=== PATIENT | female | born 1985 | race African-American/Black ===

== ENCOUNTER 2017-08-12 10:04 | Emergency (ER) | payer OTHER ==
[2017-08-12 10:17] VITALS: RESP 18; TEMP 97.8
--- NOTE | 2017-08-12 10:52 | ED ---
General Adult HPI - General Chief complaint: Vaginal Bleeding Stated complaint: Vaginal bleeding Time Seen by Provider: 08/12/17 10:37 Source: patient, RN notes reviewed Mode of arrival: ambulatory Limitations: no limitations - History of Present Illness Initial comments: Patient is a pleasant 32-year-old female presenting to the emergency department vaginal bleeding. Onset of symptoms was a month ago. Patient has been bleeding daily for the past month. Patient denies possible . Patient states bleeding is heavier than a regular period patient states occasionally seems like it is going to slow down however it does not. Patient occasionally has clots. No significant cramping. No history of similar symptoms previously. No abdominal pain. No fevers. - Related Data Previous Rx's Medication Instructions Recorded Ibuprofen [Motrin] 600 mg PO Q6HR PRN #12 tab 08/12/17 Norethindrone-Ethinyl Estrad 1 each PO DAILY #1 tablet 08/12/17 [Ortho-Novum 7-7-7-28 Tablet] Allergies Allergy/AdvReac Type Severity Reaction Status Date / Time No Known Allergies Allergy Unverified 08/12/17 12:38 Review of Systems ROS Statement: Those systems with pertinent positive or pertinent negative responses have been documented in the HPI. ROS Other: All systems not noted in ROS Statement are negative. Constitutional: Denies: fever Eyes: Denies: eye pain ENT: Denies: ear pain Respiratory: Denies: cough Cardiovascular: Denies: chest pain Endocrine: Denies: fatigue Gastrointestinal: Denies: abdominal pain Genitourinary: Reports: abnormal menses. Denies: dysuria Musculoskeletal: Denies: back pain Skin: Denies: rash Neurological: Denies: weakness Past Medical History Past Medical History: No Reported History History of Any Multi-Drug Resistant Organisms: None Reported Past Surgical History: No Surgical Hx Reported Past Psychological History: No Psychological Hx Reported Smoking Status: Never smoker Past Alcohol Use History: Occasional Past Drug Use History: None Reported General Exam Limitations: no limitations General appearance: alert, in no apparent distress Head exam: Present: atraumatic Eye exam: Present: normal appearance, PERRL ENT exam: Present: normal oropharynx Neck exam: Present: normal inspection Respiratory exam: Present: normal lung sounds bilaterally Cardiovascular Exam: Present: regular rate, normal rhythm GI/Abdominal exam: Present: soft. Absent: distended, tenderness External exam: Present: normal external exam (RN gris is present) Speculum exam: Present: vaginal bleeding (Minimal fresh blood and minimal dry blood) By manual exam: Present: normal by manual exam. Absent: cervical motion tenderness, adnexal tenderness, adnexal mass Extremities exam: Present: normal inspection Neurological exam: Present: alert Psychiatric exam: Present: normal affect, normal mood Skin exam: Present: normal color Course Vital Signs 08/12/17 10:13 Temperature 97.8 F Pulse Rate 84 Respiratory 18 Rate Blood Pressure 132/95 O2 Sat by Pulse 98 Oximetry Medical Decision Making - Medical Decision Making Patient reexamined and resting comfortably in bed. Patient updated on results and plan. Patient confirms she is a nonsmoker. - Lab Data Result diagrams: 08/12/17 11:09 08/12/17 11:09 Lab Results 08/12/17 08/12/17 08/12/17 Range/Units 11:09 11:09 11:09 WBC 6.6 (3.8-10.6) k/uL RBC 4.50 (3.80-5.40) m/uL Hgb 13.0 (11.4-16.0) gm/dL Hct 39.5 (34.0-46.0) % MCV 87.8 (80.0-100.0) fL MCH 28.9 (25.0-35.0) pg MCHC 32.9 (31.0-37.0) g/dL RDW 13.6 (11.5-15.5) % Plt Count 470 H (150-450) k/uL Neutrophils % 59 % Lymphocytes % 30 % Monocytes % 3 % Eosinophils % 5 % Basophils % 1 % Neutrophils # 3.9 (1.3-7.7) k/uL Lymphocytes # 2.0 (1.0-4.8) k/uL Monocytes # 0.2 (0-1.0) k/uL Eosinophils # 0.3 (0-0.7) k/uL Basophils # 0.1 (0-0.2) k/uL PT 10.6 (9.0-12.0) sec INR 1.0 (<1.2) APTT 24.1 (22.0-30.0) sec Sodium 139 (137-145) mmol/L Potassium 4.2 (3.5-5.1) mmol/L Chloride 106 (98-107) mmol/L Carbon Dioxide 23 (22-30) mmol/L Anion Gap 10 mmol/L BUN 7 (7-17) mg/dL Creatinine 0.72 (0.52-1.04) mg/dL Est GFR (MDRD) Af Amer >60 (>60 ml/min/1.73 sqM) Est GFR (MDRD) Non-Af >60 (>60 ml/min/1.73 sqM) Glucose 116 H (74-99) mg/dL Calcium 9.9 (8.4-10.2) mg/dL Total Bilirubin 0.4 (0.2-1.3) mg/dL AST 18 (14-36) U/L ALT 27 (9-52) U/L Alkaline Phosphatase 63 (38-126) U/L Total Protein 7.9 (6.3-8.2) g/dL Albumin 4.3 (3.5-5.0) g/dL Urine Color Urine Appearance (Clear) Urine pH (5.0-8.0) Ur Specific [place] (1.001-1.035) Urine Protein (Negative) Urine Glucose (UA) (Negative) Urine Ketones (Negative) Urine Blood (Negative) Urine Nitrite (Negative) Urine Bilirubin (Negative) Urine Urobilinogen (<2.0) mg/dL Ur Leukocyte Esterase (Negative) Urine HCG, Qual (Not Detectd) Trichomonas Ag (Rapid) (Negative) 08/12/17 08/12/17 08/12/17 Range/Units 11:15 11:15 11:31 WBC (3.8-10.6) k/uL RBC (3.80-5.40) m/uL Hgb (11.4-16.0) gm/dL Hct (34.0-46.0) % MCV (80.0-100.0) fL MCH (25.0-35.0) pg MCHC (31.0-37.0) g/dL RDW (11.5-15.5) % Plt Count (150-450) k/uL Neutrophils % % Lymphocytes % % Monocytes % % Eosinophils % % Basophils % % Neutrophils # (1.3-7.7) k/uL Lymphocytes # (1.0-4.8) k/uL Monocytes # (0-1.0) k/uL Eosinophils # (0-0.7) k/uL Basophils # (0-0.2) k/uL PT (9.0-12.0) sec INR (<1.2) APTT (22.0-30.0) sec Sodium (137-145) mmol/L Potassium (3.5-5.1) mmol/L Chloride (98-107) mmol/L Carbon Dioxide (22-30) mmol/L Anion Gap mmol/L BUN (7-17) mg/dL Creatinine (0.52-1.04) mg/dL Est GFR (MDRD) Af Amer (>60 ml/min/1.73 sqM) Est GFR (MDRD) Non-Af (>60 ml/min/1.73 sqM) Glucose (74-99) mg/dL Calcium (8.4-10.2) mg/dL Total Bilirubin (0.2-1.3) mg/dL AST (14-36) U/L ALT (9-52) U/L Alkaline Phosphatase (38-126) U/L Total Protein (6.3-8.2) g/dL Albumin (3.5-5.0) g/dL Urine Color Yellow Urine Appearance Clear (Clear) Urine pH 5.5 (5.0-8.0) Ur Specific [place] 1.015 (1.001-1.035) Urine Protein Negative (Negative) Urine Glucose (UA) Negative (Negative) Urine Ketones Negative (Negative) Urine Blood Negative (Negative) Urine Nitrite Negative (Negative) Urine Bilirubin Negative (Negative) Urine Urobilinogen <2.0 (<2.0) mg/dL Ur Leukocyte Esterase Negative (Negative) Urine HCG, Qual Not Detected (Not Detectd) Trichomonas Ag (Rapid) Negative (Negative) - Radiology Data Radiology results: image reviewed (Ultrasound does show thickened endometrium. Fibroid.) Disposition Clinical Impression: Dysfunctional uterine bleeding Disposition: HOME SELF-CARE Condition: Stable Instructions: Dysfunctional Uterine Bleeding (ED) Additional Instructions: Please follow-up with primary care physician and [facility]. No smoking with oral contraceptive pills. Return for fever, pain, worsening symptoms or other concerns Prescriptions: Ibuprofen [Motrin] 600 mg PO Q6HR PRN #12 tab PRN Reason: Pain Norethindrone-Ethinyl Estrad [Ortho-Novum 7-7-7-28 Tablet] 1 each PO DAILY #1 tablet Referrals: Renuka Perez MD [Primary Care Provider] - 1-2 days Demetrius Arreola MD [STAFF PHYSICIAN] - 1-2 days Time of Disposition: 12:56
[2017-08-12 11:30] LABS: Basophils # (A) 0.1 k/uL (0-0.2); Basophils % (A) 1 %; CH 29.1; CHCM 33.2; Eosinophils # (A) 0.3 k/uL (0-0.7); Eosinophils % (A) 5 %; HCT 39.5 % (34.0-46.0); HDW 2.34; Luc % (Auto) 2; Lymphocytes % (A) 30 %; MCH 28.9 pg (25.0-35.0); MCHC 32.9 g/dL (31.0-37.0); MCV 87.8 fL (80.0-100.0); Mean Platelet Volume 7.6; Monocytes # (A) 0.2 k/uL (0-1.0); Monocytes % (A) 3 %; Neutrophils # (A) 3.9 k/uL (1.3-7.7); Neutrophils % (A) 59 %; RDW 13.6 % (11.5-15.5); WBC 6.6 k/uL (3.8-10.6); WBC (Perox) 6.75
[2017-08-12 11:34] LABS: Appearance,Urine Clear (Clear); Bilirubin,Urine Negative (Negative); Glucose,Urine (UA) Negative (Negative); Ketones,Urine Negative (Negative); Leukocyte Esterase,Urine Negative (Negative); Nitrite,Urine Negative (Negative); PH, Urine 5.5 (5.0-8.0); Protein,Urine Negative (Negative); Specific Gravity,Urine 1.015 (1.001-1.035); UA Billing (MACRO vs. MICRO) CHEM; Urobilinogen,Urine <2.0 mg/dL (<2.0)
[2017-08-12 11:41] LABS: Partial Thromboplastin Time 24.1 sec (22.0-30.0); Prothrombin Time 10.6 sec (9.0-12.0)
[2017-08-12 11:44] LABS: ALT 27 U/L (9-52); AST 18 U/L (14-36); Alkaline Phosphatase 63 U/L (38-126); Anion Gap 10 mmol/L; Blood Urea Nitrogen 7 mg/dL (7-17); Calcium 9.9 mg/dL (8.4-10.2); Carbon Dioxide 23 mmol/L (22-30); Chloride 106 mmol/L (98-107); Glucose 116 mg/dL (74-99); Non-African American GFR(MDRD) >60 (>60 ml/min/1.73 sqM); Potassium 4.2 mmol/L (3.5-5.1); Sodium 139 mmol/L (137-145); Total Bilirubin 0.4 mg/dL (0.2-1.3); Total Protein 7.9 g/dL (6.3-8.2)
--- NOTE | 2017-08-12 12:42 | US ---
EXAMINATION TYPE: US transvaginal DATE OF EXAM: 08/12/2017 COMPARISON: NONE CLINICAL HISTORY: pain. Bleeding for 3 weeks since cycle started, non gravid, no abnormal pelvic hist ory TECHNIQUE: TV Date of LMP: 07/21/2017 EXAM MEASUREMENTS: Uterus: 7.0 x 5.3 x 3.8 cm Endometrial Stripe: 1.7 cm Right Ovary: 2.5 x 2.7 x 2.6 cm Left Ovary: 2.5 x 2.2 x 1.1 cm 1. Uterus: Anteverted 5.1cm left sided probable fibroid 2. Endometrium: borderline thickened 3. Right Ovary: wnl 4. Left Ovary: unable to doppler left ovary due to deep location just posterior to large fibroid, ap pears wnl Spectral, color and waveform doppler imaging shows good arterial and venous flow within the right o vary; there is no evidence for ovarian torsion. 5. Bilateral Adnexa: wnl 6. Posterior cul-de-sac: wnl IMPRESSION: 1. FIBROID UTERUS. 2. THICKENED ENDOMETRIAL STRIPE.
[2017-08-12 13:14] VITALS: BP 126/98; PULSE 83
[2017-08-14 11:11] LABS: Chlamydia/GC Source Vaginal
== END 2017-08-12 13:15 | disposition home or self-care (01) ==
LOC: EC 10:04
DX: N93.8 Other specified abnormal uterine and vaginal bleeding (principal)
CPT/HCPCS: 36415; 76830; 80053; 81003; 81025; 85025; 85610; 85730; 87070; 87205; 87491; 87591; 87808; 93976; 99284

== ENCOUNTER → 2023-02-10 | Outpatient (CLI) | payer OTHER ==
--- NOTE | 2023-02-11 14:39 | CT ---
EXAMINATION TYPE: CT abdomen pelvis w con DATE OF EXAM: 02/10/2023 COMPARISON: None INDICATION: LLQ abdominal pain, abnormal pelvic ultrasound DLP: 1020.4 mGycm, Automated exposure control for dose reduction was used. CONTRAST: 100 cc mL of Isovue 300. Study performed with Oral Contrast TECHNIQUE: Axial images were obtained from above the diaphragm to the pubic rami in the axial plane a t 5 mm thick sections. Reconstructed images are reviewed on the computer in the coronal plane. FINDINGS: Limited CT sections are obtained the lung bases. The lung bases are clear. CT ABDOMEN: Liver: Normal Spleen: Normal Pancreas: Normal Adrenal glands: The adrenal glands are normal. Gallbladder: Normal Kidneys: No masses are evident. No hydronephrosis is present. There is a 1.4 cm anterior right mid renal cyst. Delayed images were obtained through the kidneys, which remain unremarkable. Aorta: Normal Inferior vena cava: Normal. CT PELVIS: Loops of bowel within the abdomen and pelvis are normal. There are loops of bowel lacking oral co ntrast or with limited distention limiting their evaluation. Appendix: Normal as visualized. Urinary bladder: Normal. Genitourinary structures: Uterus is very large and bulky compatible with underlying fibroids. If aixa tional delineation is required, MRI could be performed. Adnexal regions appear normal. No free fluid is within the pelvis. Findings correlate with the 01/11/2023 ultrasound. Osseous structures: No suspicious lytic or sclerotic lesions. IMPRESSIONS: 1. Large bulky uterus, likely large underlying fibroids.
== END | disposition home or self-care (01) ==
LOC: RADCTMAIN 17:02
PROVIDERS: ATTEND Family Medicine
DX: N85.2 Hypertrophy of uterus (principal); R10.32 Left lower quadrant pain; R93.89 Abnormal findings on diagnostic imaging of other specified body structures
CPT/HCPCS: 74177; Q9967

== ENCOUNTER → 2023-02-14 | Outpatient (CLI) | payer OTHER ==
--- NOTE | 2023-02-14 13:54 | MM ---
Reason for Exam: Clinical finding. Last mammogram was performed 1 year(s) and 11 month(s) ago. Patient History: Menarche at age 11. Patient has no children. Premenopausal. 03/09/2021, US biopsy breast VAD RT on the Right side. Maternal grandmother had breast cancer at or over age 50. Risk Values: Vania 5 year model risk: 0.9%. NCI Lifetime model risk: 13.6%. Prior Study Comparison: 01/13/2021 Bilateral Screening Mammogram, [facility]. 02/10/2021 Right US breast RT - 2, [facility]. 03/09/2021 Right Diagnostic Mammogram, [facility]. 07/27/2021 Left US breast LT, [facility]. 01/11/2022 Left US breast LT, [facility]. Tissue Density: The breast tissue is extremely dense which could obscure a lesion on mammography. Findings: Analyzed By CAD. There are several circumscribed masses bilaterally redemonstrated along with 2 biopsy clips in the right breast again seen. There is a large mass with dystrophic calcifications in the anterior left breast redemonstrated. No definitive new suspicious group of microcalcifications bilaterally. Overall Assessment: Benign, BI-RAD 2 Management: Screening Mammogram of both breasts in 1 year. Some advise bilateral breast ultrasound surveillance in patient's with background dense tissue. Results were given to the patient verbally at the time of exam. Electronically signed and approved by: Per Morales M.D.
== END | disposition home or self-care (01) ==
LOC: RADMAMWWP 13:13
PROVIDERS: ATTEND Family Medicine
DX: R92.8 Other abnormal and inconclusive findings on diagnostic imaging of breast (principal); Z80.3 Family history of malignant neoplasm of breast
CPT/HCPCS: 77066; G0279; 77062

== ENCOUNTER → 2023-03-16 | Outpatient (CLI) | payer OTHER ==
--- NOTE | 2023-03-16 10:56 | USB ---
Reason for Exam: Additional evaluation requested from prior study. Patient History: Menarche at age 11. Patient has no children. Premenopausal. 03/09/2021, US biopsy breast VAD RT on the Right side. Maternal grandmother had breast cancer at or over age 50. Risk Values: Vania 5 year model risk: 0.9%. NCI Lifetime model risk: 13.6%. Technique: Method: Whole Breast Handheld. Prior Study Comparison: 03/09/2021 Right Diagnostic Mammogram, [facility]. 03/09/2021 Right Diagnostic Mammogram, [facility]. 02/14/2023 Bilateral MG 3D diag mammo w/cad MERNA, [facility]. Findings: The whole breast of both breasts, the axilla of both breasts and the retroareolar of both breasts were scanned. A complete US of all four quadrants of the breast , axilla, and retro-areolar region were reviewed. RIGHT: Compared to 02/15/2021, * *A lobulated hypoechoic area measuring 9 mm at the 4:00 position seems to have been present previously as well, similar in size. It is more defined now and can BE reassessed at 6 month follow-up. * Scattered cysts are redemonstrated. * 3.2 cm previously biopsied fibroadenoma at the 10:00 position. * Mildly thickened but nonenlarged right axillary lymph node measuring 8 mm short axis. Cortical thickness of 4 mm, probably reactive/post inflammatory. LEFT: Compared to 07/27/2021 and 01/11/2022, * *A mixed echogenicity lesion measuring 1.3 x 0.9 x 0.6 cm at the 12:00 position appears to have been present previously. The appearance is somewhat more hypoechoic. This area can be reassessed at 6 months. * Partially calcified circumscribed mass 1:00 position measuring 3.0 cm is unchanged. Likely fibroadenoma. * A mildly lobulated hypoechoic lesion measuring 1.6 x 1.1 cm at the 2:00 position, 8 cm from the nipple is new. It may correspond to a new density on mammogram. Tissue sampling recommended. * Scattered cysts are present. * No axillary lymphadenopathy. Overall Assessment: Suspicious, BI-RAD 4 Management: Ultrasound Core Biopsy of the left breast. For the new 2:00 finding measuring 1.6 cm, possible correlate to the mammographic density. Additional six-month follow-up ultrasound both breasts for the 4:00 position on the right and 12:00 position on the left. Results were given to the patient verbally at the time of exam. Electronically signed and approved by: Zunilda Pope M.D. Radiologist
== END | disposition home or self-care (01) ==
LOC: RADUSWWP 09:12
PROVIDERS: ATTEND Family Medicine
DX: R92.8 Other abnormal and inconclusive findings on diagnostic imaging of breast (principal); Z80.3 Family history of malignant neoplasm of breast

== ENCOUNTER → 2023-03-29 | Day surgery (SDC) | payer OTHER ==
--- NOTE | 2023-04-05 09:36 | MM ---
Reason for Exam: Clinical finding. Last screening mammogram was performed 2 month(s) ago. Patient History: Menarche at age 11. Patient has no children. Premenopausal. 03/09/2021, US biopsy breast VAD RT on the Right side. Maternal grandmother had breast cancer at or over age 50. Risk Values: Vania 5 year model risk: 0.9%. NCI Lifetime model risk: 13.6%. Prior Study Comparison: 03/09/2021 Right Diagnostic Mammogram, [facility]. 03/09/2021 Right Diagnostic Mammogram, [facility]. 02/14/2023 Bilateral MG 3D diag mammo w/cad MERNA, [facility]. 03/16/2023 Bilateral US breast BILAT, [facility]. Tissue Density: Left: The breast tissue is extremely dense which could obscure a lesion on mammography. Pathology Description: Location: 2 o'clock. Marker Left Behind. Needle Type: Mao Cores: 4 Gauge: 13 The procedure of ultrasound guided core biopsy was explained to the patient. Benefits, alternatives, and risks were discussed. An informed consent was then obtained. The patient was placed in supine positioning for imaging and for the procedure. The overlying skin was prepped and draped in usual sterile fashion. Lidocaine was used as anesthetic into the skin and subcutaneous tissue up to area of concern in the left breast at 2:00 8 cm from the nipple. Under ultrasound guidance, a 12-gauge vacuum assisted biopsy gun device was used to obtain 4 core samples. Following this, a biopsy clip was left in lesion. The patient tolerated the procedure well without any immediate complication. The patient was kept in the radiology department for short stay after the procedure and then discharged home in stable condition. Postprocedure mammogram: The patient was transferred to mammography for physician ordered post procedure mammogram for clip placement verification. The postprocedure mammogram the left breast demonstrates the clip to be in appropriate position. Impression: Successful, uncomplicated ultrasound guided core biopsy of area of concern in the left breast at 2:00 8 cm from the nipple, full pathology results to follow. Pathology Results: Result: Benign, Fibroadenoma. LEFT BREAST, TWO O'CLOCK, ULTRASOUND GUIDED NEEDLE CORE BIOPSY: Fibroadenoma. Overall Assessment: Benign Assessment: MG diagnostic mammo LT wo CAD. - Left: Benign, BI-RAD 2. Management: Diagnostic Mammogram of the left breast in 6 months. Electronically signed and approved by: Attila Currie D.O.
== END ==
LOC: RADUSWWP 12:58
PROVIDERS: ATTEND Family Medicine
DX: D24.2 Benign neoplasm of left breast (principal); Z80.0 Family history of malignant neoplasm of digestive organs
CPT/HCPCS: 88305; 77065; 19083; A4648

== ENCOUNTER → 2023-04-14 | Outpatient (CLI) | payer OTHER ==
[2023-04-14 09:34] VITALS: BP 118/83; PULSE 79; RESP 17; TEMP 97.8
--- NOTE | 2023-04-14 09:53 | P.GSHP ---
History of Present Illness H&P Date: 04/14/23 Chief Complaint: fibroadenoma left breast Lexie is a 38 year old female seen in consultation for DR. 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 She had a bilateral breast ultrasound on 03-16-23 which showed Right breast: Lobulated hypoechoic area measuring 9 mm at the 4 o'clock position seems to have been present previously and is similar in size. Reassessment in 6 months recommended 3.2 cm previously biopsied fibroadenoma at the 10 o'clock position Mildly thickened but not enlarged right axillary lymph node measuring 8 mm in the short axis cortical thickness of 4 mm felt to be reactive Left breast: Mixed echogenicity lesion measuring 1.3 x 0.9 cm at the 12 o'clock position appears to be present previously reassessment in 6 months recommended Partially calcified circumflex described mass 1 o'clock position measuring 3 cm unchanged likely fibroadenoma Mildly lobulated hypoechoic lesion measuring 1.6 x 1.1 cm at 2:00 may correspond to new density on mammogram tissue sampling recommended Tissue sampling of the left breast 2:00 lesion was performed which revealed a fibroadenoma The patient was recommended to have 6 month follow-up ultrasound of both breasts. She has had prior right breast biopsy in 2019, and told a fibroad enoma. She also had a mammogram performed in showed extremely dense breast tissue this was felt to be benign BIRADS 2. Several circumscribed masses were seen bilaterally with biopsy clips in the right breast again seen. There was a large mass with dystrophic calcifications in the anterior left breast no definitive new suspicious group of calcifications bilaterally. She does not feel any lumps or masses in her breast. She is not complaining of any nipple discharge or skin changes. She is not complaining of any trauma or infection in her breast. Caffiene: none nicotine: none chocolate: occasional BCP: to regulate period several years ago, for 1 month Family History: maternal grandmother: breast cancer maternal great aunt: breast cancer Hormonal History: menarche: 11 G0 periods irregular, patient has a fibroid hormones: none Surgical History: none Medical History: none Social History: nicotine: none alcohol: weekly drugs:none - Constitutional Constitutional: Reports fever, Reports sweats - EENT Eyes: bilateral blurred vision, denies pain Ears: bilateral: decreased hearing, deny: tinnitus Ears, nose, mouth and throat: Denies headache, Denies sore throat - Breasts Breasts: bilateral: as per HPI - Cardiovascular Cardiovascular: Denies chest pain, Denies shortness of breath - Respiratory Respiratory: Denies cough, Denies 7 - Gastrointestinal Gastrointestinal: Denies abdominal pain, Denies diarrhea, Denies nausea, Denies vomiting - Genitourinary (Female) Genitourinary: Denies dysuria, Denies hematuria - Menstruation Menstruation: Reports as per HPI, Reports cycle variable - Musculoskeletal Musculoskeletal: Denies myalgias - Integumentary Comment: skin lesion on her back, bleeding to follow up with medical DrJeet - Neurological Neurological: Denies numbness, Denies weakness - Psychiatric Psychiatric: Denies anxiety, Denies depression - Endocrine Endocrine: Denies fatigue, Denies weight change - Hematologic/Lymphatic Comment: none - Allergic/Immunologic Allergic/Immunologic: Reports seasonal allergies Past Medical History Past Medical History: No Reported History History of Any Multi-Drug Resistant Organisms: None Reported Past Surgical History: No Surgical Hx Reported Past Psychological History: No Psychological Hx Reported Smoking Status: Never smoker Past Alcohol Use History: Occasional Past Drug Use History: None Reported Medications and Allergies Home Medications Medication Instructions Recorded Confirmed Type No Known Home Medications 03/16/23 04/14/23 History Allergies Allergy/AdvReac Type Severity Reaction Status Date / Time No Known Allergies Allergy Unverified 04/14/23 09:31 Surgical - Exam - General no distress - Eyes normal ocular movement - ENT no hearing loss - Neck trachea midline - Respiratory normal respiratory effort, clear to auscultation - Cardiovascular Rhythm: regular Heart Sounds: normal: S1, S2 - Abdomen Abdomen: soft, non tender, no guarding, no rigid, no rebound - Integumentary normal turgor, posterior bra line in the back is a skin tag which is excoriated and bleeding - Neurologic no disoriented, no combative - Musculoskeletal normal gait, normal posture - Psychiatric oriented to time, oriented to person, oriented to place, speech is normal, memory intact Breast Exam: BRA: sports bra 2X Section: Bilateral grade 3 ptosis Palpation: Right breast: Multiple positional exam fibrocystic changes no dominant masses or nodules of concern appreciated Right axilla: No adenopathy concern Left breast: Multi-positional exam no dominant masses or nodules of concern Left axilla: No adenopathy of concern Despite the radiographic findings of fibroadenomas in both breasts the breasts are very dense and no distinct lesion could be palpated in either breast. Results Mammogram and ultrasound personally reviewed Assessment and Plan Assessment: Impression: Bilateral fibroadenomas, each breast is fibroadenoma that is greater than 3 cm but appeared to be stable Discuss surgical resection however at this time the patient has declined and would prefer close surveillance Bleeding skin tag left bra line Plan: Bilateral ultrasound in 6 months with examination at that time Resection of bleeding skin tag Follow-up one week for suture removal after back Risks and benefits of removal of skin tag of discussed with the patient She is recommended not to go swimming for 6 weeks and until this heals. She understands and wishes to have it removed. Cc: Dr. Yates:
== END ==
LOC: WWCWWP 09:03
PROVIDERS: ATTEND Surgery
DX: D24.2 Benign neoplasm of left breast (principal); Z80.3 Family history of malignant neoplasm of breast; Z86.018 Personal history of other benign neoplasm
CPT/HCPCS: 88304

== ENCOUNTER → 2023-04-21 | Outpatient (CLI) | payer OTHER ==
--- NOTE | 2023-04-21 08:28 | P.PN ---
Progress Note - Text Progress Note Date: 04/21/23 She comes post resection of fiber lipoma left back. The patient tolerated this without difficulty. Pathology revealed ulcerated/traumatized fibrolipoma. Examination: Incision clean and dry Sutures removed Patient is going to follow up for bilateral ultrasound of the breast due to fibroadenomas in September 2023 with appointment CC: Dr. Guallpa
== END ==
LOC: WWCWWP 08:06
PROVIDERS: ATTEND Surgery
DX: Z04.9 Encounter for examination and observation for unspecified reason (principal); Z00.00 Encounter for general adult medical examination without abnormal findings

== ENCOUNTER → 2023-08-10 | Outpatient (CLI) | payer OTHER ==
--- NOTE | 2023-08-10 10:25 | US ---
EXAMINATION TYPE: US pelvis complete transvag DATE OF EXAM: 08/10/2023 COMPARISON: NONE CLINICAL INDICATION: Female, 38 years old with history of D25.9 LEIOMYOMA OF UTERUS, UNSPECIFIED; fib roids TECHNIQUE: Transabdominal (TA EXAM MEASUREMENTS: Uterus: 17 x 9.4 x 14.4 cm Endometrial Stripe: obscured by fibroids 1. Uterus: Anteverted Heterogenous multiple fibroids largest 11.3 x 9.7 x 9.5 cm. 2. Endometrium: Obscured gas 3. Right Ovary: Obscured by overlying bowel gas 4. Left Ovary: Obscured by overlying bowel gas 5. Bilateral Adnexa: wnl 6. Posterior cul-de-sac: wnl IMPRESSION: Significantly enlarged uterus with multiple probable leiomyomas noted.
== END | disposition home or self-care (01) ==
LOC: RADUSWWP 09:49
PROVIDERS: ATTEND Obstetrics & Gynecology
DX: D25.9 Leiomyoma of uterus, unspecified (principal)
CPT/HCPCS: 76830; 76856

== ENCOUNTER → 2024-02-16 | Outpatient (CLI) | payer OTHER ==
--- NOTE | 2024-02-19 07:22 | USB ---
Reason for Exam: Additional evaluation requested from prior study. Patient History: Menarche at age 11. Patient has no children. Premenopausal. 03/29/2023, Benign US biopsy breast VAD LT on the left side. 03/09/2021, US biopsy breast VAD RT on the Right side. Maternal grandmother had breast cancer at or over age 50. Risk Values: Vania 5 year model risk: 1.7%. NCI Lifetime model risk: 17.7%. Technique: Method: Whole Breast Handheld. Doppler: Color. Prior Study Comparison: 03/09/2021 Right Diagnostic Mammogram, [facility]. 02/14/2023 Bilateral MG 3D diag mammo w/cad MERNA, [facility]. 03/29/2023 Left MG diagnostic mammo LT wo CAD., [facility]. Findings: The whole breast of both breasts, the axilla of both breasts and the retroareolar of both breasts were scanned. Right breast: There is a suspicious lobular hypoechoic area with possible shadowing right breast 5:00 position 5 cm from nipple. This may be changed from comparison, ultrasound-guided core biopsy is recommended. Multiple hypoechoic areas with shadowing are present throughout the right breast. Larger areas include the 1:00 position 7 cm from nipple. At the 8:00 position 9 cm from the nipple there is some shadowing with somewhat irregular hypoechoic signal appearing worse with harmonics. Short-term follow-up is recommended in 6 months. There is a large mass corresponding to the mammographic abnormality with calcification in prior biopsy clip at the 10:00 position 9 cm from the nipple. This appears to have smooth borders. Left breast: At the 1:00 position there is a hypoechoic area 12 cm from the nipple. Monitoring can be performed. At the 2:00 position 7 cm from the nipple there is a circumscribed somewhat lobulated hypoechoic density. Monitoring can be performed with follow-up in 6 months. Axillary regions are unremarkable. There are additional smaller findings bilaterally. Overall Assessment: Suspicious, BI-RAD 4 Management: Ultrasound-Guided Core Biopsy of the right breast. A clinical breast exam by your physician is recommended on an annual basis and results should be correlated with mammographic findings. This exam should not preclude additional follow-up of suspicious palpable abnormalities. Results were given to the patient verbally at the time of exam. Electronically signed and approved by: Edgardo Joe D.O. Radiologis
== END | disposition home or self-care (01) ==
LOC: RADUSWWP 07:39
PROVIDERS: ATTEND Surgery
DX: R92.8 Other abnormal and inconclusive findings on diagnostic imaging of breast (principal); Z80.3 Family history of malignant neoplasm of breast

== ENCOUNTER → 2024-02-16 | Outpatient (CLI) | payer OTHER ==
--- NOTE | 2024-02-16 08:20 | MM ---
Reason for Exam: Follow-up at short interval from prior study. Last screening mammogram was performed 12 month(s) ago. Patient History: Menarche at age 11. Patient has no children. Premenopausal. 03/29/2023, Benign US biopsy breast VAD LT on the left side. 03/09/2021, US biopsy breast VAD RT on the Right side. Maternal grandmother had breast cancer at or over age 50. Risk Values: Vania 5 year model risk: 1.7%. NCI Lifetime model risk: 17.7%. Prior Study Comparison: 01/13/2021 Bilateral Screening Mammogram, [facility]. 03/09/2021 Right Diagnostic Mammogram, [facility]. 03/09/2021 Right Diagnostic Mammogram, [facility]. 02/14/2023 Bilateral MG 3D diag mammo w/cad MERNA, [facility]. 03/29/2023 Left MG diagnostic mammo LT wo CAD., [facility]. Tissue Density: The breasts are extremely dense, which lowers the sensitivity of mammography. Findings: Analyzed By CAD. The pattern is symmetrical. There are several large oval densities with calcification likely related to fibroadenomas. There are punctate calcifications developing on the right within the previously biopsied mass. No suspicious groups of microcalcifications, spiculated or lobular masses, architectural distortion or other secondary signs of malignancy are mammographically apparent. Overall Assessment: Probably benign, BI-RAD 3 Management: Diagnostic Mammogram of the right breast in 6 months. A negative mammogram report should not preclude additional follow up of suspicious palpable abnormalities. Patient should continue monthly self breast exam. A clinical breast exam by your physician is recommended on an annual basis and results should be correlated with mammographic findings. Electronically signed and approved by: Edgardo Joe D.O. Radiologis
== END | disposition home or self-care (01) ==
LOC: RADMAMWWP 07:37
PROVIDERS: ATTEND Family Medicine
DX: R92.343 Mammographic extreme density, bilateral breasts (principal); R92.1 Mammographic calcification found on diagnostic imaging of breast; Z80.3 Family history of malignant neoplasm of breast
CPT/HCPCS: 77066; G0279; 77062

== ENCOUNTER → 2024-03-01 | Day surgery (SDC) | payer OTHER ==
--- NOTE | 2024-03-01 15:01 | USB ---
Risk Values: Vania 5 year model risk: 1.7%. NCI Lifetime model risk: 17.7%. Findings: Patient presented for possible biopsy right 5:00 region. The area of the irregular masslike shadowing does not persist on today's examination. There appears to be a small hypoechoic area measuring 7.6 mm which likely reflects a fibroadenoma. 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 The patient was given the option of follow-up versus proceed with biopsy. We both agreed that by follow-up is appropriate. Patient will be returning in 6 months for follow-up ultrasound. Management: Diagnostic Breast Ultrasound of the right breast in 6 months. Electronically signed and approved by: Juan Diego Wolf M.D. Radiologis
== END ==
LOC: RADUSWWP 10:20
PROVIDERS: ATTEND Surgery
DX: Z53.8 Procedure and treatment not carried out for other reasons (principal); R92.8 Other abnormal and inconclusive findings on diagnostic imaging of breast

== ENCOUNTER → 2024-03-07 | Outpatient (CLI) | payer OTHER ==
[2024-03-07 09:14] VITALS: BP 115/82; PULSE 79; RESP 16; TEMP 97.8
--- NOTE | 2024-03-07 10:17 | P.PN ---
Subjective Progress Note Date: 03/07/24 Principal diagnosis: abnormal right breast mammogram 04-14-23 fibroadenoma left breast Lexie is a 38 year old female seen in consultation for DR. 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 She had a bilateral breast ultrasound on 03-16-23 which showed Right breast: Lobulated hypoechoic area measuring 9 mm at the 4 o'clock position seems to have been present previously and is similar in size. Reassessment in 6 months recommended 3.2 cm previously biopsied fibroadenoma at the 10 o'clock position Mildly thickened but not enlarged right axillary lymph node measuring 8 mm in the short axis cortical thickness of 4 mm felt to be reactive Left breast: Mixed echogenicity lesion measuring 1.3 x 0.9 cm at the 12 o'clock position appears to be present previously reassessment in 6 months recommended Partially calcified circumflex described mass 1 o'clock position measuring 3 cm unchanged likely fibroadenoma Mildly lobulated hypoechoic lesion measuring 1.6 x 1.1 cm at 2:00 may correspond to new density on mammogram tissue sampling recommended Tissue sampling of the left breast 2:00 lesion was performed which revealed a fibroadenoma The patient was recommended to have 6 month follow-up ultrasound of both breasts. She has had prior right breast biopsy in 2018, and told a fibroadenoma. She also had a mammogram performed in showed extremely dense breast tissue this was felt to be benign BIRADS 2. Several circumscribed masses were seen bilaterally with biopsy clips in the right breast again seen. There was a large mass with dystrophic calcifications in the anterior left breast no definitive new suspicious group of calcifications bilaterally. She does not feel any lumps or masses in her breast. She is not complaining of any nipple discharge or skin changes. She is not complaining of any trauma or infection in her breast. 03-07-24 Lexie underwent a bilateral mammogram and ultrasound on 02-16-24. She was recommended to undergo a right breast ultrasound core biopsy which was attempted on 03-01-24. The lesion of concern at that time at 5 OClock did not persist and she was given the option of a 6 month follow up. Her radiographs were reviewed with Dr. Pope. He noted some increasing calcifications in the right bresat in the region of a fibroadenoma. He recommended maginification views of the right breast. She does not feel any new lumps masses or nodules of concern in either breast. She has noted a rash around her left areola which she was given an antibiotic ointment for but it did not clear up. The rash has been present for 2 months. It has increased in size and it itches. Caffiene: none nicotine: none chocolate: occasional BCP: to regulate period several years ago, for 1 month Family History: maternal grandmother: breast cancer maternal great aunt: breast cancer Hormonal History: menarche: 11 G0 periods irregular, patient has a fibroid hormones: none Surgical History: none Medical History: none Social History: nicotine: none alcohol: weekly drugs:none - Constitutional Constitutional: Reports fever, Reports sweats - EENT Eyes: bilateral blurred vision, denies pain Ears: bilateral: decreased hearing, deny: tinnitus Ears, nose, mouth and throat: Denies headache, Denies sore throat - Breasts Breasts: bilateral: as per HPI - Cardiovascular Cardiovascular: Denies chest pain, Denies shortness of breath - Respiratory Respiratory: Denies cough - Gastrointestinal Gastrointestinal: Denies abdominal pain, Denies diarrhea, Denies nausea, Denies vomiting - Genitourinary (Female) Genitourinary: Denies dysuria, Denies hematuria - Menstruation Menstruation: Reports as per HPI, Reports cycle variable - Musculoskeletal Musculoskeletal: Denies myalgias - Integumentary Comment: skin lesion on her back, bleeding to follow up with medical DrJeet - Neurological Neurological: Denies numbness, Denies weakness - Psychiatric Psychiatric: Denies anxiety, Denies depression - Endocrine Endocrine: Denies fatigue, Denies weight change - Hematologic/Lymphatic Comment: none - Allergic/Immunologic Allergic/Immunologic: Reports seasonal allergies Past Medical History Past Medical History: No Reported History History of Any Multi-Drug Resistant Organisms: None Reported Past Surgical History: No Surgical Hx Reported Past Psychological History: No Psychological Hx Reported Smoking Status: Never smoker Past Alcohol Use History: Occasional Past Drug Use History: None Reported Medications and Allergies Home Medications Medication Instructions Recorded Confirmed Type No Known Home Medications 03/16/23 04/14/23 History Allergies Allergy/AdvReac Type Severity Reaction Status Date / Time No Known Allergies Allergy Unverified 04/14/23 09:31 Objective - Vital Signs Vital signs: Vital Signs Temp 97.8 F 04/18/24 08:56 Pulse 79 03/07/24 08:56 Resp 16 03/07/24 08:56 BP 115/82 03/07/24 08:56 Pulse Ox 99 03/07/24 08:56 FiO2 Intake & Output 03/06/24 03/07/24 03/07/24 18:59 06:59 18:59 Weight 95.254 kg - Constitutional General appearance: Present: cooperative - EENT Eyes: Present: EOMI ENT: Present: hearing grossly normal - Neck Details: thyroid feels enlarged Neck: Present: normal ROM - Respiratory Respiratory: bilateral: CTA - Cardiovascular Rhythm: regular Heart sounds: normal: S1, S2 - Gastrointestinal General gastrointestinal: Present: soft - Integumentary Integumentary: Present: normal turgor - Musculoskeletal Musculoskeletal: Present: gait normal - Psychiatric Psychiatric: Present: A&O x's 3, appropriate affect, intact judgment & insight - Additional findings Additional findings: Breast Exam: BRA: sports bra 2X Inpection: Bilateral grade 3 ptosis, and the left side in the inner aspect has some thickened scaling skin changes Palpation: Right breast: Multiple positional exam fibrocystic changes no dominant masses or nodules of concern appreciated Right axilla: No adenopathy concern Left breast: Multi-positional exam no dominant masses or nodules of concern Left axilla: No adenopathy of concern Despite the radiographic findings of fibroadenomas in both breasts the breasts are very dense and no distinct lesion could be palpated in either breast. Assessment and Plan Assessment: Impression/Plan: Mammogram and ultrasound personally reviewed with Dr. Roberson Thyroid feels prominent may be enlarged Patient complains of fatigue New microcalcifications right breast in region of biopsy-proven fibroadenoma/mag views requested by radiology Ultrasound abnormality right breast repeat ultrasound in 6 months biopsy was canceled by radiology Skin changes left areola skin punch biopsy recommended CC: Dr. Milan Lopes
== END ==
LOC: WWCWWP 08:44
PROVIDERS: ATTEND Surgery
DX: R53.83 Other fatigue (principal)

== ENCOUNTER → 2024-03-07 | Outpatient (CLI) | payer OTHER ==
--- NOTE | 2024-03-07 11:14 | MM ---
Reason for Exam: Follow-up at short interval from prior study. Last screening mammogram was performed less than 1 month ago. Patient History: Menarche at age 11. Patient has no children. Premenopausal. 03/29/2023, Benign US biopsy breast VAD LT on the left side. 03/09/2021, US biopsy breast VAD RT on the Right side. 03/01/2024, US discontinued breast core RT on the right side. Maternal grandmother had breast cancer at or over age 50. Risk Values: Vania 5 year model risk: 1.7%. NCI Lifetime model risk: 17.7%. Prior Study Comparison: 02/14/2023 Bilateral MG 3D diag mammo w/cad MERNA, [facility]. 03/29/2023 Left MG diagnostic mammo LT wo CAD., [facility]. 02/16/2024 Bilateral MG 3D diag mammo w/cad MERNA, [facility]. Tissue Density: Right: The breasts are heterogeneously dense, which may obscure small masses. Findings: Analyzed By CAD. Chronic underlying nodularity. Chronic mass upper outer quadrant of the right breast with some associated coarse calcification and a microclip from prior biopsy. However, new/increased heterogeneous calcifications within the posterior aspect of the mass for which stereotactic biopsy is recommended. Overall Assessment: Suspicious, BI-RAD 4 Management: Stereotactic Core Biopsy of the right breast. . Results were given to the patient verbally at the time of exam. Electronically signed and approved by: Zunilda Pope M.D. Radiologist
== END | disposition home or self-care (01) ==
LOC: RADMAMWWP 10:18
PROVIDERS: ATTEND Surgery
DX: N63.11 Unspecified lump in the right breast, upper outer quadrant (principal); R92.331 Mammographic heterogeneous density, right breast; R92.0 Mammographic microcalcification found on diagnostic imaging of breast; Z80.3 Family history of malignant neoplasm of breast
CPT/HCPCS: 77065; G0279; 77061

== ENCOUNTER → 2024-03-29 | Outpatient (CLI) | payer OTHER | LOC: WWCWWP 07:23 | PROVIDERS: ATTEND Surgery | DX: Z53.9 Procedure and treatment not carried out, unspecified reason (principal) ==

== ENCOUNTER → 2024-03-29 | Day surgery (SDC) | payer OTHER ==
[~2024-03-29] MED LIST: ALPRAZolam 0.25 MG TAB PO PRN; ALPRAZolam 0.5 MG TAB PO PRN
[2024-03-29 08:21] VITALS: RESP 16
[2024-03-29 09:11] VITALS: BP 120/88; PULSE 80; TEMP 98.1
--- NOTE | 2024-03-29 13:33 | MM ---
Date of Procedure: 03/29/24 Preoperative Diagnosis: Microcalcifications of concern right breast Postoperative Diagnosis: Same Procedure(s) Performed: Right breast stereotactic core biopsy Anesthesia: local Surgeon: Margy Berry Pathology: other (Right breast tissue) Condition: stable Disposition: same day Indications for Procedure: Right breast microcalcifications of concern Operative Findings: Radiograph of specimen reveals microcalcifications of concern Description of Procedure: The patient is a 39-year-old female who was noted to have microcalcifications of concern in the right breast. The radiographs were reviewed with Dr. Pope and stereotactic core biopsy was recommended. She had had a prior core biopsy of the area which revealed a fibroadenoma. These were new increasing calcifications in the region of the fibroadenoma. Risk and benefits of the procedure were discussed with the patient. The patient wished to proceed. The patient was taken to the stereotactic core biopsy room. A CC from above approach was utilized. 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 The area was targeted. The breast was prepped using chlorhexidine. 1% lidocaine 20 cc was used to anesthetize the area of concern. A 9 gauge vacuum-assisted core rotating biopsy needle was driven to the correct coordinates. A prefire film was performed. The needle was fired. A post fire film was performed and the needle was noted to be in the correct location. 7 core biopsy specimens were obtained. Radiograph of the specimen revealed the area of concern had been adequately sampled. A secure chip Top-Hat clip was deployed. The patient tolerated the procedure in stable condition. The patient will follow-up with Dr. Ferreira next week. The specimen was sent to pathology. Should be noted that prior the patient was noted to have a rash on the left nipple areolar complex this has resolved and a punch biopsy has been canceled for today of the left nipple areolar complex. This will be reevaluated next week. [facility]ITAL[facility]
== END ==
LOC: RADMAMWWP 07:25
PROVIDERS: ATTEND Surgery
DX: D05.11 Intraductal carcinoma in situ of right breast (principal)
CPT/HCPCS: 88305; 88342; 88341; 19081; A4648; J2001

== ENCOUNTER → 2024-04-05 | Outpatient (CLI) | payer OTHER ==
[2024-04-05 09:33] VITALS: BP 120/86; PULSE 86; RESP 16; TEMP 98.1
--- NOTE | 2024-04-05 09:50 | P.PN ---
Subjective Progress Note Date: 04/05/24 Right breast diagnostic mammogram done on 03-07-[address] Roberson. Recommended stero biopsy new calcifications in region of fibroadenoma UOQ right breast. Procedure discussed with the patient. She understands and wishes to proceed Additionally on the day that we do the right breast stereo biopsy we will do a punch biopsy of the skin of the left areolar region. Original Note: Subjective Progress Note Date: 03/07/24 Principal diagnosis: abnormal right breast mammogram 04-14-23 fibroadenoma left breast Lexie is a 38 year old female seen in consultation for DR. 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 She had a bilateral breast ultrasound on 03-16-23 which showed Right breast: Lobulated hypoechoic area measuring 9 mm at the 4 o'clock position seems to have been present previously and is similar in size. Reassessment in 6 months recommended 3.2 cm previously biopsied fibroadenoma at the 10 o'clock position Mildly thickened but not enlarged right axillary lymph node measuring 8 mm in the short axis cortical thickness of 4 mm felt to be reactive Left breast: Mixed echogenicity lesion measuring 1.3 x 0.9 cm at the 12 o'clock position appears to be present previously reassessment in 6 months recommended Partially calcified circumflex described mass 1 o'clock position measuring 3 cm unchanged likely fibroadenoma Mildly lobulated hypoechoic lesion measuring 1.6 x 1.1 cm at 2:00 may correspond to new density on mammogram tissue sampling recommended Tissue sampling of the left breast 2:00 lesion was performed which revealed a fibroadenoma The patient was recommended to have 6 month follow-up ultrasound of both breasts. She has had prior right breast biopsy in 2018, and told a fibroadenoma. She also had a mammogram performed in showed extremely dense breast tissue this was felt to be benign BIRADS 2. Several circumscribed masses were seen bilaterally with biopsy clips in the right breast again seen. There was a large mass with dystrophic calcifications in the anterior left breast no definitive new suspicious group of calcifications bilaterally. She does not feel any lumps or masses in her breast. She is not complaining of any nipple discharge or skin changes. She is not complaining of any trauma or infection in her breast. 03-07-24 Lexie underwent a bilateral mammogram and ultrasound on 02-16-24. She was recommended to undergo a right breast ultrasound core biopsy which was attempted on 03-01-24. The lesion of concern at that time at 5 OClock did not persist and she was given the option of a 6 month follow up. Her radiographs were reviewed with Dr. Pope. He noted some increasing calcifications in the right bresat in the region of a fibroadenoma. He recommended maginification views of the right breast. She does not feel any new lumps masses or nodules of concern in either breast. She has noted a rash around her left areola which she was given an antibiotic ointment for but it did not clear up. The rash has been present for 2 months. It has increased in size and it itches. 04-05-24 When seen on her last examination was noted to have resolution of the left areolar rash. She underwent a stereotactic core biopsy of the right breast on 03-29-2024. 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 This appears to be present within a fibroadenoma. She tolerated the procedure without difficulty, she did have a reaction to the tape. Caffiene: none nicotine: none chocolate: occasional BCP: to regulate period several years ago, for 1 month Family History: maternal grandmother: breast cancer maternal great aunt: breast cancer Hormonal History: menarche: 11 G0 periods irregular, patient has a fibroid hormones: none Surgical History: none Medical History: none Social History: nicotine: none alcohol: weekly drugs:none - Constitutional Constitutional: Reports fever, Reports sweats - EENT Eyes: bilateral blurred vision, denies pain Ears: bilateral: decreased hearing, deny: tinnitus Ears, nose, mouth and throat: Denies headache, Denies sore throat - Breasts Breasts: bilateral: as per HPI - Cardiovascular Cardiovascular: Denies chest pain, Denies shortness of breath - Respiratory Respiratory: Denies cough - Gastrointestinal Gastrointestinal: Denies abdominal pain, Denies diarrhea, Denies nausea, Denies vomiting - Genitourinary (Female) Genitourinary: Denies dysuria, Denies hematuria - Menstruation Menstruation: Reports as per HPI, Reports cycle variable - Musculoskeletal Musculoskeletal: Denies myalgias - Integumentary Comment: skin lesion on her back, bleeding to follow up with medical Dr. - Neurological Neurological: Denies numbness, Denies weakness - Psychiatric Psychiatric: Denies anxiety, Denies depression - Endocrine Endocrine: Denies fatigue, Denies weight change - Hematologic/Lymphatic Comment: none - Allergic/Immunologic Allergic/Immunologic: Reports seasonal allergies Past Medical History Past Medical History: No Reported History History of Any Multi-Drug Resistant Organisms: None Reported Past Surgical History: No Surgical Hx Reported Past Psychological History: No Psychological Hx Reported Smoking Status: Never smoker Past Alcohol Use History: Occasional Past Drug Use History: None Reported Medications and Allergies Home Medications Medication Instructions Recorded Confirmed Type No Known Home Medications 03/16/23 04/14/23 History Allergies Allergy/AdvReac Type Severity Reaction Status Date / Time No Known Allergies Allergy Unverified 04/14/23 09:31 Objective - Vital Signs Vital signs: Vital Signs Temp 98.1 F 04/05/24 09:18 Pulse 86 04/05/24 09:18 Resp 16 04/05/24 09:18 BP 120/86 04/05/24 09:18 Pulse Ox 96 04/05/24 09:18 FiO2 Intake & Output 04/04/24 04/05/24 04/05/24 18:59 06:59 18:59 Weight 95.254 kg - Constitutional General appearance: Present: cooperative - EENT Eyes: Present: EOMI ENT: Present: hearing grossly normal - Neck Neck: Present: normal ROM - Respiratory Respiratory: bilateral: CTA - Cardiovascular Heart sounds: normal: S1, S2 - Integumentary Integumentary: Present: normal turgor - Musculoskeletal Musculoskeletal: Present: gait normal - Psychiatric Psychiatric: Present: A&O x's 3, appropriate affect, intact judgment & insight - Additional findings Additional findings: Breast Exam: BRA: sports bra 2X Inspection: Bilateral grade 3 ptosis, and the left side in the inner aspect had some thickened scaling skin changes which resolved Palpation: Right breast: Multiple positional exam fibrocystic changes no dominant masses or nodules of concern appreciated Right axilla: No adenopathy concern Left breast: Multi-positional exam no dominant masses or nodules of concern Left axilla: No adenopathy of concern Despite the radiographic findings of fibroadenomas in both breasts the breasts are very dense and no distinct lesion could be palpated in either breast. Assessment and Plan Assessment: Impression/Plan: Mammogram and ultrasound personally reviewed with Dr. Roberson Thyroid feels prominent may be enlarged Patient complains of fatigue New microcalcifications right breast in region of biopsy-proven fibroadenoma/mag views requested by radiology/which led to a stereotactic core biopsy pathology from this revealed high-grade DCIS with comedonecrosis involving a fibroadenoma this is ER/SC positive Ultrasound abnormality right breast repeat ultrasound in 6 months biopsy was canceled by radiology Skin changes left areola skin punch biopsy recommended which was canceled when patient was re-evaluated secondary to resolution Plan: 1. Needle localization lumpectomy right breast, possible right breast oncoplastic tissue transfer 2. Medical clearance Dr. Milan Lopes CC: Dr. Milan Lopes
== END ==
LOC: WWCWWP 09:09
PROVIDERS: ATTEND Surgery
DX: R92.8 Other abnormal and inconclusive findings on diagnostic imaging of breast (principal); R92.0 Mammographic microcalcification found on diagnostic imaging of breast; D24.1 Benign neoplasm of right breast; D24.2 Benign neoplasm of left breast; R21 Rash and other nonspecific skin eruption; D05.11 Intraductal carcinoma in situ of right breast; R53.83 Other fatigue; Z80.3 Family history of malignant neoplasm of breast

== ENCOUNTER → 2024-05-02 | Outpatient (CLI) | payer OTHER ==
[2024-05-02 10:45] VITALS: BP 133/80; PULSE 79; RESP 16; TEMP 98.2
--- NOTE | 2024-05-02 11:22 | P.PN ---
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 Lexie underwent a bilateral mammogram and ultrasound on 02-16-24. She was recommended to undergo a right breast ultrasound core biopsy which was attempted on 03-01-24. The lesion of concern at that time at 5 OClock did not persist and she was given the option of a 6 month follow up. Her radiographs were reviewed with Dr. Pope. He noted some increasing calcifications in the right breast in the region of a biopsy proven fibroadenoma. He recommended maginification views of the right breast. This led to a stero biopsy of the area on 03-29-24. She did not feel any new lumps masses or nodules of concern in either breast. She had noted a rash around her left areola which she was given an antibiotic ointment for but it did not clear up. The rash has been present for 2 months. It has increased in size and it itches. her case was presented at tumor board and she was recommended to have needle localization lumpectomy, and SNB genetic testing was (-). Caffiene: none nicotine: none chocolate: occasional BCP: to regulate period several years ago, for 1 month Family History: maternal grandmother: breast cancer maternal great aunt: breast cancer Hormonal History: menarche: 11 G0 periods irregular, patient has a fibroid hormones: none Surgical History: none Medical History: none Social History: nicotine: none alcohol: weekly drugs:none - Constitutional Constitutional: Reports fever, Reports sweats - EENT Eyes: bilateral blurred vision, denies pain Ears: bilateral: decreased hearing, deny: tinnitus Ears, nose, mouth and throat: Denies headache, Denies sore throat - Breasts Breasts: bilateral: as per HPI - Cardiovascular Cardiovascular: Denies chest pain, Denies shortness of breath - Respiratory Respiratory: Denies cough - Gastrointestinal Gastrointestinal: Denies abdominal pain, Denies diarrhea, Denies nausea, Denies vomiting - Genitourinary (Female) Genitourinary: Denies dysuria, Denies hematuria - Menstruation Menstruation: Reports as per HPI, Reports cycle variable - Musculoskeletal Musculoskeletal: Denies myalgias - Integumentary Comment: skin lesion on her back, bleeding to follow up with medical DrJeet - Neurological Neurological: Denies numbness, Denies weakness - Psychiatric Psychiatric: Denies anxiety, Denies depression - Endocrine Endocrine: Denies fatigue, Denies weight change - Hematologic/Lymphatic Comment: none - Allergic/Immunologic Allergic/Immunologic: Reports seasonal allergies Past Medical History Past Medical History: No Reported History History of Any Multi-Drug Resistant Organisms: None Reported Past Surgical History: No Surgical Hx Reported Past Psychological History: No Psychological Hx Reported Smoking Status: Never smoker Past Alcohol Use History: Occasional Past Drug Use History: None Reported Medications and Allergies Home Medications Medication Instructions Recorded Confirmed Type No Known Home Medications 03/16/23 04/14/23 History Allergies Allergy/AdvReac Type Severity Reaction Status Date / Time No Known Allergies Allergy Unverified 04/14/23 09:31 Objective - Vital Signs Vital signs: Vital Signs Temp 98.2 F 05/02/24 10:42 Pulse 79 05/02/24 10:42 Resp 16 05/02/24 10:42 BP 133/80 05/02/24 10:42 Pulse Ox 99 05/02/24 10:42 FiO2 Intake & Output 05/01/24 05/02/24 05/02/24 18:59 06:59 18:59 Weight 95.254 kg - Constitutional General appearance: Present: cooperative - EENT Eyes: Present: EOMI ENT: Present: hearing grossly normal - Neck Neck: Present: normal ROM - Respiratory Respiratory: bilateral: CTA - Cardiovascular Heart sounds: normal: S1, S2 - Integumentary Integumentary: Present: normal turgor - Musculoskeletal Musculoskeletal: Present: gait normal - Psychiatric Psychiatric: Present: A&O x's 3, appropriate affect, intact judgment & insight - Additional findings Additional findings: Breast Exam: BRA: sports bra 2X Inpection: Bilateral grade 3 ptosis, on the left side the periareolar skin changes have resolved; right breast clean and dry small evidence of a keloid is present at the site Palpation: Right breast: Multiple positional exam fibrocystic changes no dominant masses or nodules of concern appreciated Right axilla: No adenopathy concern Left breast: Multi-positional exam no dominant masses or nodules of concern Left axilla: No adenopathy of concern Despite the radiographic findings of fibroadenomas in both breasts the breasts are very dense and no distinct lesion could be palpated in either breast. Assessment and Plan Assessment: Impression: DCIS high-grade and area fibroadenoma right breast Plan: Medical clearance Dr. Milan Lopes Localization excisional lumpectomy area of ductal carcinoma right breast, possible oncoplastic tissue transfer, right sentinel node injection, right sentinel node biopsy, Risk and benefits of procedure were discussed with the patient. Risk include but are not limited to bleeding, infection, reaction to the anesthetic. She may have some decrease sensation to the inner arm or lymphedema. She understands and wishes to proceed. Additionally if margins were to be positive further tissue acquisition may be necessary. Additionally she may be at increased risk for keloid formation. CC: Dr. Jyothi Lopes
--- NOTE | 2024-05-02 11:30 | P.BCPN ---
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 Lexie underwent a bilateral mammogram and ultrasound on 02-16-24. She was recommended to undergo a right breast ultrasound core biopsy which was attempted on 03-01-24. The lesion of concern at that time at 5 OClock did not persist and she was given the option of a 6 month follow up. Her radiographs were reviewed with Dr. Pope. He noted some increasing calcifications in the right breast in the region of a biopsy proven fibroadenoma. He recommended maginification views of the right breast. This led to a stero biopsy of the area on 03-29-24. She did not feel any new lumps masses or nodules of concern in either breast. She had noted a rash around her left areola which she was given an antibiotic ointment for but it did not clear up. The rash has been present for 2 months. It has increased in size and it itches. her case was presented at tumor board and she was recommended to have needle localization lumpectomy, and SNB genetic testing was (-). Caffiene: none nicotine: none chocolate: occasional BCP: to regulate period several years ago, for 1 month Family History: maternal grandmother: breast cancer maternal great aunt: breast cancer Hormonal History: menarche: 11 G0 periods irregular, patient has a fibroid hormones: none Surgical History: none Medical History: none Social History: nicotine: none alcohol: weekly drugs:none - Constitutional Constitutional: Reports fever, Reports sweats - EENT Eyes: bilateral blurred vision, denies pain Ears: bilateral: decreased hearing, deny: tinnitus Ears, nose, mouth and throat: Denies headache, Denies sore throat - Breasts Breasts: bilateral: as per HPI - Cardiovascular Cardiovascular: Denies chest pain, Denies shortness of breath - Respiratory Respiratory: Denies cough - Gastrointestinal Gastrointestinal: Denies abdominal pain, Denies diarrhea, Denies nausea, Denies vomiting - Genitourinary (Female) Genitourinary: Denies dysuria, Denies hematuria - Menstruation Menstruation: Reports as per HPI, Reports cycle variable - Musculoskeletal Musculoskeletal: Denies myalgias - Integumentary Comment: skin lesion on her back, bleeding to follow up with medical DrJeet - Neurological Neurological: Denies numbness, Denies weakness - Psychiatric Psychiatric: Denies anxiety, Denies depression - Endocrine Endocrine: Denies fatigue, Denies weight change - Hematologic/Lymphatic Comment: none - Allergic/Immunologic Allergic/Immunologic: Reports seasonal allergies Past Medical History Past Medical History: No Reported History History of Any Multi-Drug Resistant Organisms: None Reported Past Surgical History: No Surgical Hx Reported Past Psychological History: No Psychological Hx Reported Smoking Status: Never smoker Past Alcohol Use History: Occasional Past Drug Use History: None Reported Medications and Allergies Home Medications Medication Instructions Recorded Confirmed Type No Known Home Medications 03/16/23 04/14/23 History Allergies Allergy/AdvReac Type Severity Reaction Status Date / Time No Known Allergies Allergy Unverified 04/14/23 09:31 Objective - Vital Signs Vital Signs: Vital Signs Temp 98.2 F 05/02/24 10:42 Pulse 79 05/02/24 10:42 Resp 16 05/02/24 10:42 BP 133/80 05/02/24 10:42 Pulse Ox 99 05/02/24 10:42 FiO2 Intake & Output 05/01/24 05/02/24 05/02/24 18:59 06:59 18:59 Weight 95.254 kg - Constitutional General appearance: Present: cooperative - EENT Eyes: Present: EOMI ENT: Present: hearing grossly normal - Neck Neck: Present: normal ROM - Breast Ptosis: Grade 3: Right Breast Ptosis, Left Breast Ptosis Right Breast Palpation (Multi-positional): No dominant masses Left Breast Palpation (Multi-positional): No dominant masses Right Axilla Palpation: No adenopathy of concern Left Axilla Palpation: No adenopathy of concern - Respiratory Respiratory: bilateral: CTA - Cardiovascular Heart sounds: normal: S1, S2 - Integumentary Integumentary: Present: normal turgor - Musculoskeletal Musculoskeletal: Present: gait normal - Psychiatric Psychiatric: Present: A&O x's 3, appropriate affect, intact judgment & insight Assessment and Plan Plan: Impression: 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 Patient understands and wishes to proceed. Prep Education Provided - Preoperative Education Given Pre-Op Kit Given Date: 05/02/24 - Functional Assessment Performed?: Yes (arm adduction test passed) Referal Provided?: No - Smoking Cessation Education Provided?: Yes
== END ==
LOC: WWCWWP 10:06
PROVIDERS: ATTEND Surgery
DX: R92.8 Other abnormal and inconclusive findings on diagnostic imaging of breast (principal); R92.1 Mammographic calcification found on diagnostic imaging of breast; D05.11 Intraductal carcinoma in situ of right breast; D24.1 Benign neoplasm of right breast; Z80.3 Family history of malignant neoplasm of breast

== ENCOUNTER 2024-05-07 10:00 | Day surgery (SDC) | payer OTHER ==
[2024-05-03 12:40] VITALS: BMI 33.9
[~2024-05-07 10:00] MED LIST changes: -ALPRAZolam 0.25 MG TAB PO PRN; -ALPRAZolam 0.5 MG TAB PO PRN; +HYDROmorphone 0.5 MG/0.5 ML SYRINGE IVP PRN
[2024-05-07] MEDS: ALPRAZolam 0.5 MG TAB PO STA (10:24)
[2024-05-07] MEDS: IV FLUID CONTINUATION 1,000 ML IV ONE (10:34)
[2024-05-07] MEDS: LACTATED RINGERS 1,000 ML IV SCH (10:35)
[2024-05-07] MEDS: ACETAMINOPHEN TAB 500 MG TAB PO PRN (10:37)
[2024-05-07] MEDS: LIDOCAINE 1% INJ 10MG/ML (20 ML MDV) SQ ONE ×3 (11:38→15:40)
--- NOTE | 2024-05-07 12:31 | NM ---
EXAMINATION TYPE: NM sentinel node injection DATE OF EXAM: 05/07/2024 COMPARISON: NONE INDICATION: Abnormal mammogram. Informed consent was obtained. A timeout was performed. The area around the right nipple was cleansed with alcohol. In a single dose, a total of 493.0 uCi Technetium 99m Tilmanocept was injected. The patient tolerated the procedure very well. IMPRESSION: 1. Successful injection for sentinel node evaluation.
[2024-05-07] MEDS: HEPARIN SODIUM,PORCINE 5,000 UNIT/ML 1 ML VIAL SQ PRN (12:50)
[2024-05-07] MEDS: DEXAMETHASONE SOD PHOSPHATE 4 MG/ML 1 ML VIAL IV ONE (12:50)
[2024-05-07] MEDS: ONDANSETRON 4 MG/2 ML VIAL IVP ONE (12:50)
--- NOTE | 2024-05-07 13:24 | P.NAPBC ---
NAPBC Queries - NAPBC Queries Was patient's case review presented at [facility] tumor board? If no, comment.: Yes Was patient's pathology reviewed at [facility]? If no, comment.: Yes Was breast conservation surgery offered? If no, comment.: Yes Was sentinel node biopsy offered? If no, comment.: Yes Was diagnosis confirmed by percutaneous core biopsy? If no, comment.: Yes Is patient mastectomy patient?: No Was a preop referral to reconstructive surgeon offered?: No Clinical Stage: right breast DCIS ER+MO+G3
[2024-05-07] MEDS ORDERED: PROPOFOL 10 MG/ML 20 ML VIAL IV ONE (14:03)
[2024-05-07] MEDS ORDERED: LIDOCAINE 1% INJ 10MG/ML (20 ML MDV) ONE (14:03)
[2024-05-07] MEDS ORDERED: fentaNYL (PF) 50 MCG/ML 2 ML AMP ONE (14:03)
[2024-05-07] MEDS ORDERED: MIDAZOLAM 2 MG/2 ML VIAL ONE (14:03)
[2024-05-07] MEDS ORDERED: GLYCOPYRROLATE 0.2 MG/ML 2 ML VIAL ONE (14:03)
[2024-05-07] MEDS ORDERED: PHENYLEPHRINE 10 MG/ML VIAL ONE (14:03)
[2024-05-07] MEDS ORDERED: SUCCINYLCHOLINE CHLORIDE 200 MG/10 ML VIAL IV ONE (14:03)
[2024-05-07] MEDS: LACTATED RINGERS 1,000 ML IV ONE (15:34)
--- NOTE | 2024-05-07 15:39 | P.BCAON ---
Date of Procedure: 05/07/24 Preoperative Diagnosis: DCIS right breast Postoperative Diagnosis: Same Procedure(s) Performed: Right axilla sentinel node biopsy, right breast needle localization lumpectomy, oncoplastic tissue transfer 24 cm Anesthesia: GABBI Surgeon: Margy Berry Estimated Blood Loss (ml): 5 IV fluids (ml): 800 Pathology: other (Breast tissue, sentinel node tissue, axillary tissue) Condition: stable Disposition: same day Indications for Procedure: Biopsy-proven right breast ductal carcinoma in situ Operative Findings: Very dense breast tissue Description of Procedure: The patient was first seen in the radiology department for needle localization of the area of DCIS was performed. Additionally periareolar radiotracer was injected for sentinel node biopsy. The patient was brought to the operative s uite. Following induction of anesthesia the neoprobe was used to interrogate the axilla. Radioactivity was identified in the axilla. Therefore the right breast and axilla were prepped and draped in a sterile fashion. Using the neoprobe an incision was made in the axilla for the area over the area of greatest radioactivity. Dissection was carried deep into the axilla and the tissue was grasped using an Allis clamp. Using the harmonic scalpel the tissue was removed. Interrogation of the tissue revealed a 10-second count of 43,739 on the sentinel node. The background count was 13 at 10 seconds. After we are sure that hemostasis was attained the wound was irrigated. The deep tissues were closed using 3-0 Vicryl suture. The subcutaneous tissue was closed using 3-0 Vicryl suture. The skin was closed using 4-0 Monocryl. Following this the area of the breast was approached. An incision was made in the breast near the area of the wire localization device. Dissection was carried posteriorly onto the pectoralis muscle. The tissue surrounding the needle was widely excised. Bradycardia the specimen was painted for orientation. Radiograph of the specimen revealed the area of concern had been removed. Additional tissue was removed superiorly and laterally and painted for orientation. After we are sure that hemostasis was attained titanium clips were placed. Surgicel in powder form was placed. A superior pillar 3 x 2 cm was created. An inferior pillar 4 x 2 cm was created. The cavity was 5 x 2 cm. The pillars were brought together, total oncoplastic tissue transfer 24 cm. The subcutaneous tissues were closed using 3-0 Vicryl suture. The skin was closed using 4-0 Monocryl. 10 cc of 1% lidocaine were used to anesthetize the area of concern. The patient tolerated the procedure in stable condition. All instrument and sponge counts were correct at the end of the case. - Sentinal Node Biopsy Operation performed with curative intent: Yes Tracer(s) used in upfront surgery (non-neoadjuvant): radioactive tracer Tracer(s) used in the neoadjuvant setting: N/A All nodes present at end of dye-filled channel removed: N/A All significantly radioactive nodes were removed: Yes All palpably suspicious nodes were removed: Yes
[2024-05-07 16:01] VITALS: TEMP 97
[2024-05-07 16:10] VITALS: RESP 16
[2024-05-07 17:21] VITALS: BP 141/87; PULSE 97
== END 2024-05-07 17:46 | disposition home or self-care (01) ==
LOC: OR 10:00
PROVIDERS: ATTEND Surgery
DX: D05.11 Intraductal carcinoma in situ of right breast (principal); N60.11 Diffuse cystic mastopathy of right breast; N62 Hypertrophy of breast; D24.1 Benign neoplasm of right breast; Z17.0 Estrogen receptor positive status [ER+]; Z80.3 Family history of malignant neoplasm of breast; Z91.09 Other allergy status, other than to drugs and biological substances
CPT/HCPCS: 81025; 76098; 19281; 38792; 19301; 14001; 38525; C1819; A9520; J2250; J0330; J1644; J1100; J0690; J2405; J2001; J3010; J2704; J2371; 88307; 88342

== ENCOUNTER → 2024-05-17 | Outpatient (CLI) | payer OTHER ==
--- NOTE | 2024-05-17 10:30 | P.BCPO ---
Progress Note - Text Progress Note Date: 05/17/24 The patient is status post a right lumpectomy and sentinel node biopsy on 05-07-2024. Pathology revealed high-grade ductal carcinoma in situ with comedonecrosis and calcifications involving a fibroadenoma. All margins were negative. The closest margin was 4 mm from the posterior margin. The patient had 8 lymph nodes removed with 1 sentinel node no tumor cells were noted in any of the lymph nodes. Doing well with no complaints at this time Examination: Lungs: Clear Heart: Regular rate and rhythm Incision breast and axilla clean and dry Impression: Patient doing well postoperatively Plan: Follow-up radiation oncology Follow-up medical oncology Follow-up here in 4 months CC: Ramu Post Op Education - Post Op Education Post Op Education Provided Date: 05/17/24 - Functional Assessment Performed?: Yes (arm abduction passed) Path Report - Was patient given path report? Path Report Date Given: 05/17/24
[2024-05-17 10:34] VITALS: BP 148/92; PULSE 100; RESP 16; TEMP 98.4
== END ==
LOC: WWCWWP 10:11
PROVIDERS: ATTEND Surgery
DX: R92.1 Mammographic calcification found on diagnostic imaging of breast (principal); D05.11 Intraductal carcinoma in situ of right breast; Z91.048 Other nonmedicinal substance allergy status

== ENCOUNTER → 2024-09-18 | Outpatient (CLI) | payer OTHER ==
--- NOTE | 2024-09-18 11:06 | USB ---
Reason for Exam: Clinical finding. Patient History: Menarche at age 11. Patient has no children. Premenopausal. Breast cancer, right, age 39. 05/07/2024, Lumpectomy on the Right side. 05/07/2024, Malignant MG pre op needle loc RT on the right side. 03/29/2024, Malignant MG stereo VAD BX RT on the right side. 03/29/2023, Benign US biopsy breast VAD LT on the left side. 03/09/2021, US biopsy breast VAD RT on the Right side. 03/01/2024, US discontinued breast core RT on the right side. Maternal grandmother had breast cancer at or over age 50. Technique: Method: Targeted. Prior Study Comparison: 03/29/2023 Left MG diagnostic mammo LT wo CAD., [facility]. 02/16/2024 Bilateral MG 3D diag mammo w/cad [facility], [facility]. 03/07/2024 Right MG 3D diag mammo w/cad RT, [facility]. Findings: The whole breast of the right breast, the axilla of the right breast and the retroareolar of the right breast were scanned. A complete US of all four quadrants of the breast, axilla, and retro-areolar region were reviewed. No solid or cystic masses are identified. At the 1:00 position, unchanged 2.0 cm oval lesion, possible cyst. At the 5:00 position, 3 cm from the nipple, there is a new hypoechoic lesion measuring 1.2 x 0.6 x 0.7 cm possibly with punctate internal vascularity. As this is new, tissue sampling is recommended. At the 5:00 position, 5 cm from the nipple, there is a stable 9 x 8 x 6 mm probable cyst cluster. At the 9:00 position, 10 cm from the nipple, there is a stable 1.4 x 0.6 x 0.7 cm probable cyst cluster. At the 9:00 position, 2 cm from the nipple, possible intraductal lesion with some associated vascularity measuring 1.1 x 0.8 x 0.5 cm. Tissue sampling is recommended especially given the patient's recent DCIS. At the 10:00 position, 11 cm from the nipple, there is a postoperative seroma measuring 4.6 cm. No axillary lymphadenopathy. Overall Assessment: Suspicious, BI-RAD 4 Management: Ultrasound Core Biopsy of the left breast. 2 site biopsy, 5:00, 3 cm from the nipple and 9:00, 2 cm from the nipple. Results were given to the patient verbally at the time of exam. [facility], , 09/18/2024 11:04 AM. Electronically signed and approved by: Zunilda Pope M.D. Radiologist
== END | disposition home or self-care (01) ==
LOC: RADUSWWP 09:59
PROVIDERS: ATTEND Internal Medicine

== ENCOUNTER → 2024-10-01 | Day surgery (SDC) | payer OTHER ==
--- NOTE | 2024-10-10 10:10 | MM ---
Reason for Exam: Post Procedure Mammogram. Last screening mammogram was performed 8 month(s) ago. Patient History: Menarche at age 11. Patient has no children. Premenopausal. Breast cancer, right, age 39. 05/07/2024, Lumpectomy on the Right side. 05/07/2024, Malignant MG pre op needle loc RT on the right side. 03/29/2024, Malignant MG stereo VAD BX RT on the right side. 03/29/2023, Benign US biopsy breast VAD LT on the left side. 03/09/2021, US biopsy breast VAD RT on the Right side. 03/01/2024, US discontinued breast core RT on the right side. Maternal grandmother had breast cancer at or over age 50. Prior Study Comparison: 03/29/2023 Left MG diagnostic mammo LT wo CAD., [facility]. 02/16/2024 Bilateral MG 3D diag mammo w/cad [facility], [facility]. 03/07/2024 Right MG 3D diag mammo w/cad RT, [facility]. Tissue Density: Right: The breasts are extremely dense, which lowers the sensitivity of mammography. Pathology Description: Location: 9 o'clock. Marker Left Behind. Needle Type: Mammotome Cores: 6 Skin Nicks: 1 Gauge: 13 Pathology Description: Location: 5 o'clock. Marker Left Behind. Needle Type: Mammotome Cores: 6 Skin Nicks: 1 Gauge: 13 The procedure of ultrasound guided core biopsy was explained to the patient. Benefits, alternatives, and risks were discussed. An informed consent was then obtained. A timeout was performed. The patient was placed in supine positioning for imaging and for the procedure. The overlying skin was prepped and draped in usual sterile fashion. Lidocaine was used as anesthetic into the skin and subcutaneous tissue up to area of concern in the right breast. A single small skin akira was made with surgical scalpel. Under ultrasound guidance, a 12-gauge vacuum assisted biopsy gun device was used to obtain 6 core samples the 5:00 position. A biopsy clip was left in lesion. Hydromark coil core marker was placed. Complete separate setup was utilized. Skin was reclines and utilizing the initial access point the second 9:00 position lesion was localized. Under ultrasound guidance, a 12-gauge vacuum assisted biopsy gun device was used to obtain 6 core samples. A biopsy clip was left in lesion. Hydromark butterfly core marker was placed. The patient tolerated the procedure well without any immediate complication. The patient was kept in the radiology department for short stay after the procedure and then discharged home in stable condition. Postprocedure mammogram: The patient was transferred to mammography for physician ordered post procedure mammogram for clip placement verification. Post procedure mammogram demonstrates the clips in appropriate placement. Impression: Successful ultrasound guided core biopsy of 2 areas of concern in the right breast, full pathology results to follow. Recommendations: 1. Recommendations are pending pathology results. [facility], Workstation: [id number], 10/01/2024 3:58 PM. Pathology Results: Result: Benign, Fibroadenoma. Pathology and radiology were reviewed. Findings are concordant. A. RIGHT BREAST, FIVE O'CLOCK 3 CM FROM NIPPLE, NEEDLE CORE BIOPSY: Fibroadenoma. B. RIGHT BREAST, NINE O'CLOCK 2 CM FROM NIPPLE, NEEDLE CORE BIOPSY: Fibroadenoma. Overall Assessment: Benign Assessment: MG diagnostic mammo RT wo CAD - Right: Benign, BI-RAD 2. Management: Diagnostic Mammogram of the right breast in 6 months. Diagnostic Breast Ultrasound of the right breast in 6 months. Electronically signed and approved by: Edgardo Joe D.O. Radiologis
== END ==
LOC: RADUSWWP 12:44
PROVIDERS: ATTEND Surgery
DX: D24.1 Benign neoplasm of right breast (principal); Z80.3 Family history of malignant neoplasm of breast
CPT/HCPCS: 88305; 77065; 19083; 19084; A4648

== ENCOUNTER 2024-10-06 11:12 | Emergency (ER) | payer OTHER ==
[2024-10-06 12:31] LABS: Appearance,Urine Clear (Clear); Basophils % (A) 1 %; Bilirubin,Urine Negative (Negative); Blood,Urine Negative (Negative); Color,Urine Yellow; Eosinophils # (A) 0.3 k/uL (0-0.7); Eosinophils % (A) 5 %; Glucose,Urine (UA) Negative (Negative); HCT 38.9 % (34.0-46.0); HGB 12.6 gm/dL (11.4-16.0); Ketones,Urine Negative (Negative); Leukocyte Esterase,Urine Negative (Negative); Lymphocytes # (A) 1.2 k/uL (1.0-4.8); Lymphocytes % (A) 25 %; MCH 29.9 pg (25.0-35.0); MCHC 32.3 g/dL (31.0-37.0); MCV 92.7 fL (80.0-100.0); Mean Platelet Volume 7.2; Monocytes # (A) 0.3 k/uL (0-1.0); Monocytes % (A) 6 %; Neutrophils # (A) 2.9 k/uL (1.3-7.7); Neutrophils % (A) 61 %; Nitrite,Urine Negative (Negative); Platelet Count 336 k/uL (150-450); Protein,Urine Negative (Negative); RDW 12.2 % (11.5-15.5); Specific Gravity,Urine 1.021 (1.001-1.035); Urobilinogen,Urine <2.0 mg/dL (<2.0); WBC 4.9 k/uL (3.8-10.6)
--- NOTE | 2024-10-06 12:45 | CT ---
EXAMINATION TYPE: CT abdomen pelvis w con DATE OF EXAM: 10/06/2024 12:34 PM COMPARISON: 02/10/2023 CLINICAL INDICATION: Female, 39 years old with history of abdominal pain, Abdominal pain TECHNIQUE: Axial images were obtained from above the diaphragm to the pubic rami in the axial plane a t 5 mm thick sections. Reconstructed images are reviewed on the computer in the coronal plane. CONTRAST: 100 ml mL of Isovue 300. Study performed without Oral Contrast DLP: 1054.6 mGycm, Automated exposure control for dose reduction was used. FINDINGS: Limited CT sections are obtained the lung bases. The lung bases are clear. There are several left b reast nodule densities, these are currently being worked up with ultrasound and mammography biopsy. CT ABDOMEN: Liver: Normal Spleen: Normal Pancreas: Normal Adrenal glands: The adrenal glands are normal. Gallbladder: Normal Kidneys: No masses are evident. No hydronephrosis is present. No cysts are present. Delayed images were obtained through the kidneys, which remain unremarkable. Aorta: Normal Inferior vena cava: Normal. CT PELVIS: Loops of bowel within the abdomen and pelvis are normal. This study is lateral contrast limits ev aluation Appendix: No suspicious dilated tubular structure or inflammatory change is evident. A few scattered small lymph nodes within the right lower quadrant. Urinary bladder: Small and somewhat compressed by the uterus. Genitourinary structures: There are markedly enlarged fibroids within the uterus. Small amount of vanessa e fluid is within the pelvis. These may be pedunculated and separation from the ovary is somewhat dif ficult. This is increased from comparison. Osseous structures: No suspicious lytic or sclerotic lesions. IMPRESSION: 1. Left breast nodules currently being worked up. 2. Markedly enlarged uterus with fibroids. These are enlarged from the comparison. Ovarian masses wou ld be difficult to separate from the pedunculated fibroids. 3. Small amount of free fluid within the pelvis. [facility], , 10/06/2024 12:43 PM
[2024-10-06 12:46] LABS: ALT 14 U/L (4-34); AST 19 U/L (14-36); African American GFR (CKD) >90 (>60 ml/min/1.73 sqM); Albumin 3.8 g/dL (3.5-5.0); Alkaline Phosphatase 39 U/L (38-126); Amylase 71 U/L (30-110); Anion Gap 5 mmol/L; Blood Urea Nitrogen 7 mg/dL (7-17); Calcium 9.7 mg/dL (8.4-10.2); Carbon Dioxide 30 mmol/L (22-30); Chloride 104 mmol/L (98-107); Glucose 84 mg/dL (74-99); Lipase 204 U/L (23-300); Non-African American GFR(CKD) 83 (>60 ml/min/1.73 sqM); Potassium 3.9 mmol/L (3.5-5.1); Sodium 139 mmol/L (137-145); Total Bilirubin 0.7 mg/dL (0.2-1.3); Total Protein 7.1 g/dL (6.3-8.2)
--- NOTE | 2024-10-06 13:55 | ED ---
General Adult HPI - General Chief complaint: Abdominal Pain Stated complaint: Abd pain Time Seen by Provider: 10/06/24 11:33 Source: patient, RN notes reviewed Mode of arrival: ambulatory Limitations: no limitations - History of Present Illness Initial comments: 39-year-old female with medical history of breast cancer presents to the emergency department for evaluation of right-sided abdominal pain x2 days. Patient reports that over the past month she has noticed a mass on the right side of her abdomen. She states that she would occasionally have pain that comes and goes but over the past 2 days she has noticed increased pain which has become constant. She denies fever, chills, nausea, vomiting. She reports normal urination and bowel habits. Patient reports regular monthly periods. She does not currently follow with gynecology. - Related Data Previous Rx's Medication Instructions Recorded HYDROcodone/APAP 7.5-325MG [[place] 1 tab PO Q6HR PRN 3 Days #12 tab 10/06/24 7.5-325] Allergies Allergy/AdvReac Type Severity Reaction Status Date / Time adhesive tape AdvReac Rash/Hives Verified 10/06/24 11:17 Review of Systems ROS Statement: Those systems with pertinent positive or pertinent negative responses have been documented in the HPI. ROS Other: All systems not noted in ROS Statement are negative. Past Medical History Past Medical History: No Reported History, Cancer, COPD, GERD/Reflux Additional Past Medical History / Comment(s): Hx rt breast, no chemo or radiation at this time. Questionable Thyroid issue. History of Any Multi-Drug Resistant Organisms: None Reported Past Surgical History: No Surgical Hx Reported Additional Past Surgical History / Comment(s): Cervical scrape. Rt and lt breast. Rt recent bx. Past Anesthesia/Blood Transfusion Reactions: No Reported Reaction Past Psychological History: No Psychological Hx Reported Smoking Status: Never smoker Past Alcohol Use History: Rare Past Drug Use History: None Reported - Past Family History Mother Family Medical History: Cancer Additional Family Medical History / Comment(s): Maternal grandmother breast cancer General Exam Limitations: no limitations General appearance: alert, in no apparent distress Head exam: Present: atraumatic, normocephalic, normal inspection Eye exam: Present: normal appearance, PERRL, EOMI. Absent: scleral icterus, conjunctival injection, periorbital swelling ENT exam: Present: normal exam, mucous membranes moist Respiratory exam: Present: normal lung sounds bilaterally. Absent: respiratory distress, wheezes, rales, rhonchi, stridor Cardiovascular Exam: Present: regular rate, normal rhythm, normal heart sounds. Absent: systolic murmur, diastolic murmur, rubs, gallop, clicks GI/Abdominal exam: Present: tenderness, normal bowel sounds, mass (Multiple palpable masses on abdominal examination) Extremities exam: Present: normal inspection, full ROM, normal capillary refill. Absent: tenderness, pedal edema, joint swelling, calf tenderness Back exam: Present: normal inspection Neurological exam: Present: alert, oriented X3 Psychiatric exam: Present: normal affect, normal mood Skin exam: Present: warm, dry, intact, normal color. Absent: rash Course Vital Signs 10/06/24 10/06/24 11:17 15:28 Temperature 98.6 F 98.1 F Pulse Rate 85 80 Respiratory 20 18 Rate Blood Pressure 125/82 115/72 O2 Sat by Pulse 95 98 Oximetry Medical Decision Making - Medical Decision Making Was pt. sent in by a medical professional or institution (, PA, PATTERN CUTTER, urgent care, hospital, or assisted...) When possible be specific @ -No Did you speak to anyone other than the patient for history (EMS, parent, family, police, friend...)? What history was obtained from this source @ -No Did you review nursing and triage notes (agree or disagree)? Why? @ -I reviewed and agree with nursing and triage notes Were old charts reviewed (outside hosp., previous admission, EMS record, old EKG, old radiological studies, urgent care reports/EKG's, assisted records)? Report findings @ -No old charts were reviewed Differential Diagnosis (chest pain, altered mental status, abdominal pain women, abdominal pain men, vaginal bleeding, weakness, fever, dyspnea, syncope, headache, dizziness, GI bleed, back pain, seizure, CVA, palpatations, mental health, musculoskeletal)? @ -Differential Abdominal Pain Women: Appendicitis, Cholecystitis, diverticulosis, ischemic bowel, pancreatitis, hepatitis, UTI, gastroenteritis, AAA, incarcerated hernia, bowel obstruction, constipation, inflammatory bowel, hepatitis, peptic ulcer disease, splenic infarction, perforated viscus, vulvitis, ovarian torsion, PID, kidney stone, placenta abruption, this is not meant to be an all-inclusive list EKG interpreted by me (3pts min.). @ -None X-rays interpreted by me (1pt min.). @ -None done CT interpreted by me (1pt min.). @ -CT abdomen pelvis shows marked enlarged uterus with fibroids, right-sided pelvic mass difficult to differentiate between fibroid and ovarian mass measuring 13 cm x 10 cm U/S interpreted by me (1pt. min.). @ -Pelvic ultrasound obtained Heterogenous enlarged bulky fibroid uterus with shadowing artifact, questionable right ovarian mass versus pedunculated fibroid What testing was considered but not performed or refused? (CT, X-rays, U/S, labs)? Why? @ -None What meds were considered but not given or refused? Why? @ -Medication for analgesia considered, patient declined Did you discuss the management of the patient with other professionals (professionals i.e. , PA, PATTERN CUTTER, lab, RT, psych nurse, social media coordinator, aquatic ecologist, teacher, payroll officer, disability case manager)? Give summary @ -Management discussed with Dr. Arreola. I discussed the findings of the CT and ultrasound with Dr. Arreola who believes that this is likely fibroid rather than ovarian in nature and recommended outpatient follow-up Was smoking cessation discussed for >3mins.? @ -No Was critical care preformed (if so, how long)? @ -No Were there social determinants of health that impacted care today? How? (Homelessness, low income, unemployed, alcoholism, drug addiction, transportation, low edu. Level, literacy, decrease access to med. care, detention, rehab)? @ -No Was there de-escalation of care discussed even if they declined (Discuss DNR or withdrawal of care, Hospice)? DNR status @ -No What co-morbidities impacted this encounter? (DM, HTN, Smoking, COPD, CAD, Cancer, CVA, ARF, Chemo, Hep., AIDS, mental health diagnosis, sleep apnea, morbid obesity)? @ -None Was patient admitted / discharged? Hospital course, mention meds given and route, prescriptions, significant lab abnormalities, going to OR and other pertinent info. @ -Discharge. Patient presented to the emergency department for evaluation of right-sided abdominal pain. Patient declined any medication for pain control. Laboratory studies obtained. CBC, CMP, UA showed no significant abnormality. CT abdomen pelvis was obtained showing a marked enlarged uterus with fibroids. Pelvic ultrasound shows heterogenous enlarged bulky fibroid uterus, questionable right ovarian mass versus fibroid measuring 13 cm x 10 cm. I discussed these findings with Dr. Arreola who believes this is likely fibrous rather than o varian, recommend outpatient follow up. Patient provided with contact information. Patient also provided prescription for PRN pain control. Patient will be discharged home. Patient understanding and agreeable with plan. Case discussed with Dr. Del Toro Undiagnosed new problem with uncertain prognosis? @ -No Drug Therapy requiring intensive monitoring for toxicity (Heparin, Nitro, Insulin, Cardizem)? @ -No Were any procedures done? @ -No Diagnosis/symptom? @ -Uterine fibroids, abdominal pain Acute, or Chronic, or Acute on Chronic? @ -Acute Uncomplicated (without systemic symptoms) or Complicated (systemic symptoms)? @ -Uncomplicated Side effects of treatment? @ -No Exacerbation, Progression, or Severe Exacerbation? @ -Progression Poses a threat to life or bodily function? How? (Chest pain, [place], [place], pneumonia, PE, COPD, DKA, ARF, appy, cholecystitis, CVA, Diverticulitis, Homicidal, Marley cidal, threat to staff... and all critical care pts) @ -No - Lab Data Result diagrams: 10/06/24 12:21 10/06/24 12:21 Lab Results 10/06/24 10/06/24 10/06/24 Range/Units 12:21 12:21 12:21 WBC 4.9 (3.8-10.6) k/uL RBC 4.20 (3.80-5.40) m/uL Hgb 12.6 (11.4-16.0) gm/dL Hct 38.9 (34.0-46.0) % MCV 92.7 (80.0-100.0) fL MCH 29.9 (25.0-35.0) pg MCHC 32.3 (31.0-37.0) g/dL RDW 12.2 (11.5-15.5) % Plt Count 336 (150-450) k/uL MPV 7.2 Neutrophils % 61 % Lymphocytes % 25 % Monocytes % 6 % Eosinophils % 5 % Basophils % 1 % Neutrophils # 2.9 (1.3-7.7) k/uL Lymphocytes # 1.2 (1.0-4.8) k/uL Monocytes # 0.3 (0-1.0) k/uL Eosinophils # 0.3 (0-0.7) k/uL Basophils # 0.0 (0-0.2) k/uL Sodium (137-145) mmol/L Potassium (3.5-5.1) mmol/L Chloride (98-107) mmol/L Carbon Dioxide (22-30) mmol/L Anion Gap mmol/L BUN (7-17) mg/dL Creatinine (0.52-1.04) mg/dL Est GFR (CKD-EPI)AfAm (>60 ml/min/1.73 sqM) Est GFR (CKD-EPI)NonAf (>60 ml/min/1.73 sqM) Glucose (74-99) mg/dL Plasma Lactic Acid Stanislav (0.7-2.0) mmol/L Calcium (8.4-10.2) mg/dL Total Bilirubin (0.2-1.3) mg/dL AST (14-36) U/L ALT (4-34) U/L Alkaline Phosphatase (38-126) U/L Total Protein (6.3-8.2) g/dL Albumin (3.5-5.0) g/dL Amylase (30-110) U/L Lipase (23-300) U/L Urine Color Yellow Urine Appearance Clear (Clear) Urine pH 7.0 (5.0-8.0) Ur Specific Talmage 1.021 (1.001-1.035) Urine Protein Negative (Negative) Urine Glucose (UA) Negative (Negative) Urine Ketones Negative (Negative) Urine Blood Negative (Negative) Urine Nitrite Negative (Negative) Urine Bilirubin Negative (Negative) Urine Urobilinogen <2.0 (<2.0) mg/dL Ur Leukocyte Esterase Negative (Negative) Urine HCG, Qual Not Detected (Not Detectd) 10/06/24 10/06/24 Range/Units 12:21 12:21 WBC (3.8-10.6) k/uL RBC (3.80-5.40) m/uL Hgb (11.4-16.0) gm/dL Hct (34.0-46.0) % MCV (80.0-100.0) fL MCH (25.0-35.0) pg MCHC (31.0-37.0) g/dL RDW (11.5-15.5) % Plt Count (150-450) k/uL MPV Neutrophils % % Lymphocytes % % Monocytes % % Eosinophils % % Basophils % % Neutrophils # (1.3-7.7) k/uL Lymphocytes # (1.0-4.8) k/uL Monocytes # (0-1.0) k/uL Eosinophils # (0-0.7) k/uL Basophils # (0-0.2) k/uL Sodium 139 (137-145) mmol/L Potassium 3.9 (3.5-5.1) mmol/L Chloride 104 (98-107) mmol/L Carbon Dioxide 30 (22-30) mmol/L Anion Gap 5 mmol/L BUN 7 (7-17) mg/dL Creatinine 0.88 (0.52-1.04) mg/dL Est GFR (CKD-EPI)AfAm >90 (>60 ml/min/1.73 sqM) Est GFR (CKD-EPI)NonAf 83 (>60 ml/min/1.73 sqM) Glucose 84 (74-99) mg/dL Plasma Lactic Acid Stanislav 1.2 (0.7-2.0) mmol/L Calcium 9.7 (8.4-10.2) mg/dL Total Bilirubin 0.7 (0.2-1.3) mg/dL AST 19 (14-36) U/L ALT 14 (4-34) U/L Alkaline Phosphatase 39 (38-126) U/L Total Protein 7.1 (6.3-8.2) g/dL Albumin 3.8 (3.5-5.0) g/dL Amylase 71 (30-110) U/L Lipase 204 (23-300) U/L Urine Color Urine Appearance (Clear) Urine pH (5.0-8.0) Ur Specific Talmage (1.001-1.035) Urine Protein (Negative) Urine Glucose (UA) (Negative) Urine Ketones (Negative) Urine Blood (Negative) Urine Nitrite (Negative) Urine Bilirubin (Negative) Urine Urobilinogen (<2.0) mg/dL Ur Leukocyte Esterase (Negative) Urine HCG, Qual (Not Detectd) Disposition Clinical Impression: Uterine fibroid Disposition: HOME SELF-CARE Condition: Stable Instructions (If sedation given, give patient instructions): Abdominal Pain (ED) Additional Instructions: Please follow up with ASSISTANT BASEBALL COACH. Return to the emergency department for new or worsening symptoms. Prescriptions: HYDROcodone/APAP 7.5-325MG [[place] 7.5-325] 1 tab PO Q6HR PRN 3 Days #12 tab PRN Reason: Pain Is patient prescribed a controlled substance at d/c from ED?: Yes When asked, does pt state using other controlled substances?: No If prescribed controlled substance>3 days was MAPS reviewed?: Prescribed <3 Days Referrals: Susan Arroyo MD [Primary Care Provider] - 1-2 days Demetrius Arreola MD [STAFF PHYSICIAN] - 1-2 days
--- NOTE | 2024-10-06 14:11 | US ---
EXAMINATION TYPE: US pelvic complete DATE OF EXAM: 10/06/2024 COMPARISON: CT 10/06/2024 CLINICAL INDICATION: Female, 39 years old with history of ?fibroids vs ovarian mass; Hx DCIS - done w ith radiation on cancer medication TECHNIQUE: Transabdominal (TA). Transabdominal grayscale sonographic images of the pelvis were acquired. Doppler imaging: Not performed. FINDINGS: Date of LMP: 09/23/2024 EXAM MEASUREMENTS: Uterus: 14.0 x 8.6 x 12.8 cm Endometrial Stripe: 1.2 cm Right Ovary: Questionable Right ovarian mass which may be inseparable from the right ovary measuring 12.0 x 10.3 x 13.7 cm Left Ovary: 3.9 x 3.5 x 3.3 cm 1. Uterus: Heterogeneous enlarged fibroid uterus with extensive shadowing artifact. 2. Endometrium: Mildly thickened measuring 1.2 cm in greatest diameter. 3. Right Ovary: Questionable right ovarian mass versus pedunculated fibroid, very difficult to evalua te sonographically given extensive shadowing artifact. Consider surgical consultation for further sudhakar luation. 4. Left Ovary: WNL 5. Posterior cul-de-sac: WNL IMPRESSION: 1. Heterogeneous enlarged bulky fibroid uterus with associated shadowing artifact as above. 2. Questionable right ovarian mass versus pedunculated fibroid, incompletely evaluated given technic al factors. Consider surgical consultation for further evaluation. [facility], , 10/06/2024 2:09 PM
[2024-10-06 15:29] VITALS: BP 115/72; PULSE 80; RESP 18; TEMP 98.1
== END 2024-10-06 15:28 | disposition home or self-care (01) ==
LOC: EC 11:12
DX: N63.20 Unspecified lump in the left breast, unspecified quadrant (principal); D25.9 Leiomyoma of uterus, unspecified; Z91.048 Other nonmedicinal substance allergy status
CPT/HCPCS: 36415; 80053; 82150; 83605; 83690; 85025; 81003; 81025; 76856; 74177; 99284; Q9967; 93976

== ENCOUNTER → 2024-10-10 | Outpatient (CLI) | payer OTHER ==
[2024-10-10 07:46] VITALS: BP 137/87; PULSE 85; RESP 18; TEMP 98
--- NOTE | 2024-10-10 08:40 | P.PN ---
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 Lexie underwent a bilateral mammogram and ultrasound on 02-16-24. She was recommended to undergo a right breast ultrasound core biopsy which was attempted on 03-01-24. The lesion of concern at that time at 5 OClock did not persist and she was given the option of a 6 month follow up. Her radiographs were reviewed with Dr. Pope. He noted some increasing calcifications in the right breast in the region of a biopsy proven fibroadenoma. He recommended maginification views of the right breast. This led to a stero biopsy of the area on 03-29-24. She did not feel any new lumps masses or nodules of concern in either breast. She had noted a rash around her left areola which she was given an antibiotic ointment for but it did not clear up. The rash had been present for 2 months. It has increased in size and it itches. her case was presented at tumor board and she was recommended to have needle localization lumpectomy, and SNB genetic testing was (-). She underwent a right breast lumpectomy and SNB on 05-07-24. This revealed a high grade DCIS with comedonecrosis and calcifications involving a fibroadenoma. All margins were (-). 8 nodes removed all (-) note radiation oncology reviewed 06-06-24 radiation recommended, completed 20 fractions on 07-31-24 note medical oncology reviewed: 09-16-24; recommended tamoxifen she had an ultrasound of the right breast on 09-18-24 . which led to an ultrasound guided core biopsy of two sites on 10-01-24. These were both fibroadenomas. The ultrasound was personally reviewed with Dr. Fulton and discussed and felt to be benign concordant. Today she is again concerned about the rash in the left breast. She also was concerned about the left breast. She does feel some post op changes in the right breast but no changes in the left breast. Her last right breast mammogram was in February 2024 which led to the stero biopsy. Her last bilateral mammogram was on 02-16-2024. Diagnostic mammogram of the right breast in 6 months was recommended. Additionally at that time she had bilateral breast ultrasound and in the left breast at the 2 o'clock position there was a circumscribed somewhat lobulated hypoechoic density. 6-month repeat ultrasound recommended breast She is on Tamoxifen and tolerating this, she is not complaining of any symptoms Caffiene: none nicotine: none chocolate: occasional BCP: to regulate period several years ago, for 1 month Family History: maternal grandmother: breast cancer maternal great aunt: breast cancer Hormonal History: menarche: 11 G0 periods irregular, patient has a fibroid hormones: none Surgical History: right breast lumpectomy and SNB Medical History: none Social History: nicotine: none alcohol: weekly drugs:none - Constitutional Constitutional: Reports fever, Reports sweats - EENT Eyes: bilateral blurred vision, denies pain Ears: bilateral: decreased hearing, deny: tinnitus Ears, nose, mouth and throat: Denies headache, Denies sore throat - Breasts Breasts: bilateral: as per HPI - Cardiovascular Cardiovascular: Denies chest pain, Denies shortness of breath - Respiratory Respiratory: Denies cough - Gastrointestinal Gastrointestinal: Denies abdominal pain, Denies diarrhea, Denies nausea, Denies vomiting - Genitourinary (Female) Genitourinary: Denies dysuria, Denies hematuria - Menstruation Menstruation: Reports as per HPI, Reports cycle variable - Musculoskeletal Musculoskeletal: Denies myalgias - Integumentary Comment: skin lesion on her back, bleeding to follow up with medical Dr. - Neurological Neurological: Denies numbness, Denies weakness - Psychiatric Psychiatric: Denies anxiety, Denies depression - Endocrine Endocrine: Denies fatigue, Denies weight change - Hematologic/Lymphatic Comment: none - Allergic/Immunologic Allergic/Immunologic: Reports seasonal allergies Past Medical History Past Medical History: No Reported History History of Any Multi-Drug Resistant Organisms: None Reported Past Surgical History: No Surgical Hx Reported Past Psychological History: No Psychological Hx Reported Smoking Status: Never smoker Past Alcohol Use History: Occasional Past Drug Use History: None Reported Medications and Allergies Home Medications Medication Instructions Recorded Confirmed Type No Known Home Medications 03/16/23 04/14/23 History Allergies Allergy/AdvReac Type Severity Reaction Status Date / Time No Known Allergies Allergy Unverified 04/14/23 09:31 Objective - Vital Signs Vital signs: Vital Signs Temp 98 F 11/21/24 07:41 Pulse 85 10/10/24 07:41 Resp 18 10/10/24 07:41 BP 137/87 10/10/24 07:41 Pulse Ox 98 10/10/24 07:41 FiO2 Intake & Output 10/09/24 10/10/24 10/10/24 18:59 06:59 18:59 Weight 97.522 kg - Constitutional General appearance: Present: cooperative - EENT Eyes: Present: EOMI ENT: Present: hearing grossly normal - Neck Neck: Present: normal ROM - Respiratory Respiratory: bilateral: CTA - Cardiovascular Rhythm: regular Heart sounds: normal: S1, S2 - Integumentary Integumentary: Present: normal turgor - Musculoskeletal Musculoskeletal: Present: gait normal - Psychiatric Psychiatric: Present: A&O x's 3, appropriate affect, intact judgment & insight - Additional findings Additional findings: Breast Exam: BRA: sports bra 2X Inpection: Bilateral grade 3 ptosis, Palpation: Right breast: Multiple positional exam fibrocystic changes no dominant masses or nodules of concern appreciated, thickening related to radiation changes Right axilla: No adenopathy concern Left breast: Multi-positional exam no dominant masses or nodules of concern no areolar rash Left axilla: No adenopathy of concern Assessment and Plan Assessment: Impression: DCIS high-grade and area fibroadenoma right breast fibroandemona of the right breast at 5 and 9 oclock patient on tamoxifen Plan: right breast diagnostic mammogram in 6 months left breast ultrasound and mammogram now with follow up continue the tamoxifen and continue follow up with medical oncology follow with radiation oncology CC: Dr. Jyothi Lopes
== END ==
LOC: WWCWWP 07:23
PROVIDERS: ATTEND Surgery
DX: D05.11 Intraductal carcinoma in situ of right breast (principal); R92.8 Other abnormal and inconclusive findings on diagnostic imaging of breast; N63.0 Unspecified lump in unspecified breast; R92.1 Mammographic calcification found on diagnostic imaging of breast; Z91.048 Other nonmedicinal substance allergy status; Z80.3 Family history of malignant neoplasm of breast

== ENCOUNTER → 2024-11-29 | Outpatient (CLI) | payer OTHER ==
--- NOTE | 2024-12-05 11:50 | BMR ---
EXAM DATE: 11/29/2024 EXAM DESCRIPTION: MRI-Breast Bilat (W/WO Contrast) INDICATION: Right breast carcinoma post lumpectomy and radiation therapy. Restaging. COMPARISON: Prior diagnostic mammogram dated 05/07/2024 and 10/01/2024 CONTRAST: 8.0 ml of contrast material. TECHNIQUE: Multi sequence multiplanar MR imaging of the breasts was obtained. Subsequently, after the uneventful intravenous administration of Gadavist contrast material, Only 1 dynamic post contrast sequence was obtained. Post processing was performed utilizing a [employer] CAD workstation. FINDINGS: The breasts are composed of heterogeneous fibroglandular tissue. There is mild background parenchymal enhancement identified. The no axillary or internal mammary lymphadenopathy. Diffuse right breast skin thickening with associated trabecular edema likely related to prior radiation therapy. T2 weighted images demonstrated several mildly T2 bright lesions in both breasts corresponding to involuting fibroadenomas with associated coarse/popcorn calcifications on corresponding mammogram dated 02/16/2024. Small amount of seroma at the prior lumpectomy site in the right breast. There is no abnormal enhancement in either breast to suggest malignancy however evaluation was suboptimal since only 1 dynamic post-contrast sequence could be obtained. Post treatment changes are stable in the right breast. There is no abnormal signal or enhancement in the chest wall or subcutaneous tissue. IMPRESSION: 1. No definite MR evidence of malignancy in either breast including right lumpectomy site given the limitation that only 1 dynamic post contrast sequence was obtained. 2. Diffuse right breast skin thickening with associated trabecular edema likely related to prior radiation therapy. 3. No axillary or internal mammary lymphadenopathy. Final assessment: BI-RADS category 2: Benign findings MTDD
== END | disposition home or self-care (01) ==
LOC: RADMRIMAIN 06:00
PROVIDERS: ATTEND Surgery
DX: Z85.3 Personal history of malignant neoplasm of breast (principal); Z92.3 Personal history of irradiation; R60.9 Edema, unspecified; R23.4 Changes in skin texture
CPT/HCPCS: C8908; A9585; 77049

== ENCOUNTER → 2024-12-05 | Outpatient (CLI) | payer OTHER ==
[2024-12-05 14:14] VITALS: BP 120/89; PULSE 96; RESP 17; TEMP 98.8
--- NOTE | 2024-12-05 14:28 | P.PN ---
Subjective Progress Note Date: 12/05/24 Subjective Progress Note Date: 10/10/24 DCIS right breast near fibroadenoma DCIS TisER+Pr+G3 right breast Lexie is a 39 year old female who underwent a stero biopsy of the right breast on 03-29-24 which showed high grade DCIS in the area of a f ibroadenoma. Lexie underwent a bilateral mammogram and ultrasound on 02-16-24. She was recommended to undergo a right breast ultrasound core biopsy which was attempted on 03-01-24. The lesion of concern at that time at 5 OClock did not persist and she was given the option of a 6 month follow up. Her radiographs were reviewed with Dr. Pope. He noted some increasing calcifications in the right breast in the region of a biopsy proven fibroadenoma. He recommended maginification views of the right breast. This led to a stero biopsy of the area on 03-29-24. She did not feel any new lumps masses or nodules of concern in either breast. She had noted a rash around her left areola which she was given an antibiotic ointment for but it did not clear up. The rash had been present for 2 months. It has increased in size and it itches. her case was presented at tumor board and she was recommended to have needle localization lumpectomy, and SNB genetic testing was (-). She underwent a right breast lumpectomy and SNB on 05-07-24. This revealed a high grade DCIS with comedonecrosis and calcifications involving a fibroadenoma. All margins were (-). 8 nodes removed all (-) note radiation oncology reviewed 06-06-24 radiation recommended, completed 20 fractions on 07-31-24 note medical oncology reviewed: 09-16-24; recommended tamoxifen she had an ultrasound of the right breast on 09-18-24 . which led to an ultrasound guided core biopsy of two sites on 10-01-24. These were both fibroadenomas. The ultrasound was personally reviewed with Dr. Fulton and discussed and felt to be benign concordant. Today she is again concerned about the rash in the left breast. She also was concerned about the left breast. She does feel some post op changes in the right breast but no changes in the left breast. Her last right breast mammogram was in February 2024 which led to the stero biopsy. Her last bilateral mammogram was on 02-16-2024. Diagnostic mammogram of the right breast in 6 months was recommended. Additionally at that time she had bilateral breast ultrasound and in the left breast at the 2 o'clock position there was a circumscribed somewhat lobulated hypoechoic density. 6-month repeat ultrasound recommended breast She is on Tamoxifen and tolerating this, she is not complaining of any symptoms 12-05-24 right breast DCIS high grade, status post lumpectomy on 05-07-24; 12 mm grade 3 all mragins (-), 8 nodes (-) 20 fractions rad two new lesions in the right breast 5 and 9 fibroadenomas; 10-01-24 seen in ER 10-06-24 with abdominal pain , ? ovarian lesion follow up [employer]; at this time she has declined surgery note medical oncology 10-15-24 reviewed continue tamoxifen MRI of the breast done on 11-29-24; SUYAPA 2 note 10-15-25, Lexie stopped tamoxifen medical oncology is aware She is not complaining of any new lumps masses or nodules of concern in either breast. We have discussed MRI findings, at this time she is due for a bilateral mammogr am in January 2025 Caffiene: none nicotine: none chocolate: occasional BCP: to regulate period several years ago, for 1 month Family History: maternal grandmother: breast cancer maternal great aunt: breast cancer Hormonal History: menarche: 11 G0 periods irregular, patient has a fibroid hormones: none Surgical History: right breast lumpectomy and SNB Medical History: none Social History: nicotine: none alcohol: weekly drugs:none - Constitutional Constitutional: Reports fever, Reports sweats - EENT Eyes: bilateral blurred vision, denies pain Ears: bilateral: decreased hearing, deny: tinnitus Ears, nose, mouth and throat: Denies headache, Denies sore throat - Breasts Breasts: bilateral: as per HPI - Cardiovascular Cardiovascular: Denies chest pain, Denies shortness of breath - Respiratory Respiratory: Denies cough - Gastrointestinal Gastrointestinal: Denies abdominal pain, Denies diarrhea, Denies nausea, Denies vomiting - Genitourinary (Female) Genitourinary: Denies dysuria, Denies hematuria - Menstruation Menstruation: Reports as per HPI, Reports cycle variable - Musculoskeletal Musculoskeletal: Denies myalgias - Integumentary Comment: skin lesion on her back, bleeding to follow up with medical DrJeet - Neurological Neurological: Denies numbness, Denies weakness - Psychiatric Psychiatric: Denies anxiety, Denies depression - Endocrine Endocrine: Denies fatigue, Denies weight change - Hematologic/Lymphatic Comment: none - Allergic/Immunologic Allergic/Immunologic: Reports seasonal allergies Past Medical History Past Medical History: No Reported History History of Any Multi-Drug Resistant Organisms: None Reported Past Surgical History: No Surgical Hx Reported Past Psychological History: No Psychological Hx Reported Smoking Status: Never smoker Past Alcohol Use History: Occasional Past Drug Use History: None Reported Medications and Allergies Home Medications Medication Instructions Recorded Confirmed Type No Known Home Medications 03/16/23 04/14/23 History Allergies Allergy/AdvReac Type Severity Reaction Status Date / Time No Known Allergies Allergy Unverified 04/14/23 09:31 Objective - Vital Signs Vital signs: Intake & Output 12/04/24 12/05/24 12/05/24 18:59 06:59 18:59 Weight 90.718 kg - Respiratory Respiratory: bilateral: CTA - Psychiatric Psychiatric: Present: A&O x's 3, appropriate affect, intact judgment & insight - Additional findings Additional findings: Patient declined breast exam today, her last examination was on 10-01-2024 Assessment and Plan Assessment: Impression: DCIS high-grade and area fibroadenoma right breast fibroandemona of the right breast at 5 and 9 oclock patient stopped tamoxifen MRI bilateral 11-29-24 BIRAD 2 Plan: Bilateral mammogram by 2024 with appointment at that time Continue to follow with medical and radiation oncology Follow-up here sooner any questions or concerns CC: Dr. Jyothi Lopes
== END ==
LOC: WWCWWP 13:54
PROVIDERS: ATTEND Surgery
DX: D24.1 Benign neoplasm of right breast (principal); D05.11 Intraductal carcinoma in situ of right breast; R92.8 Other abnormal and inconclusive findings on diagnostic imaging of breast; Z80.3 Family history of malignant neoplasm of breast; Z91.09 Other allergy status, other than to drugs and biological substances